=== PATIENT | female | born 1935 | race Caucasian/White ===

== ENCOUNTER → 2016-11-23 | Outpatient (CLI) | payer OTHER ==
[~2016-11-23] MED LIST: ALL100 PO; NAPR1TAB9 PO; OMEG10007 PO; PRLSR20 PO
--- NOTE | 2016-11-24 08:01 | MAMMOGRAPHY REPORT ---
BILATERAL DIGITAL SCREENING MAMMOGRAM WITH CAD: 11/23/2016 CLINICAL HISTORY: Routine screening. Patient has no complaints. TECHNIQUE: Bilateral CC and MLO views were obtained. Current study was also evaluated with a Comput er Aided Detection (CAD) system. COMPARISON: Comparison is made to exams dated: 02/20/2015 mammogram, 02/16/2013 mammogram, 02/19/2014 ma mmogram, 02/11/2012 mammogram, 02/05/2011 mammogram - [facility], and 01/30/2009. BREAST COMPOSITION: There are scattered areas of fibroglandular density in both breasts. FINDINGS: There are rodlike secretory calcifications and a few benign rim calcifications in the [address]s. No suspicious mass, architectural distortion or cluster of suspicious microcalcifications is s een. IMPRESSION: ACR BI-RADS CATEGORY 1: NEGATIVE There is no mammographic evidence of malignancy. A 1 year screening mammogram is recommended. The p atient will receive written notification of the results. Approximately 10% of breast cancers are not detected with mammography. A negative mammographic repor t should not delay biopsy if a clinically suggestive mass is present. Mary Lake M.D. ay/:11/23/2016 16:10:05 Manager Strategic Development: Leti MONSIVAIS([place]), [facility] letter sent: Normal 1/2 BI-RADS Code: ACR BI-RADS Category 1: Negative
== END | disposition home or self-care (01) ==
LOC: C.MAMM 08:06
PROVIDERS: ATTEND Family Medicine
DX: Z12.31 Encounter for screening mammogram for malignant neoplasm of breast (principal)

== ENCOUNTER 2023-01-13 11:17 | Inpatient (IN) ==
--- NOTE | 2023-01-13 12:40 | Emergency Department Note ---
Impression & Plan Acute exacerbation of chronic obstructive pulmonary disease ADMIT ED Provider Note HPI: The patient is an 87-year-old female with history of dementia, presents emergency department with a chief complaint of shortness of breath. Patient's daughter is at the bedside and serves with further history. Patient's daughter states that the patient was found in her assisted living [address] 2 days ago on the ground. She had been in an altered state but was refusing to go to the hospital therefore they cleaned her up and kept her at her apartment. She had a follow- up appointment today with her PCP where she was noted to be complaining of shortness of breath, PCP recommended transfer to the ED for further assessment. On arrival here to the ED the patient was noted to be hypoxic on room air at about 83%, mild increased work of breathing and coarse bilateral breath sounds. She was placed on nasal cannula oxygen with good improvement. Patient is a limited historian with her history of dementia, she does deny any chest pain on arrival but states she does feel short of breath. Patient is afebrile on arrival. ROS: - Per HPI *Outpatient medications and allergy history reviewed. *Pertinent external medical records reviewed. PE: General: Alert HEENT: Normocephalic, trachea midline Eyes: Extraocular eye movement is intact, no scleral erythema Pulmonary: Coarse bilateral breath sounds with diminished air movement bilaterally, no wheezing Cardio: Regular rate and rhythm GI: Abdomen is soft to palpation : No suprapubic tenderness MSK: No evidence of trauma or malformation of the extremities, no edema Skin: No evidence of rash Neuro: Alert, no focal deficits Psychiatric: Cooperative maltster: (As interpreted by myself): - An order was placed for continuous cardiac monitoring - Patient was noted to be in sinus rhythm with a rate of 105 EKG: (As interpreted by myself): Rate: 170 Rhythm: Sinus tachycardia Intervals: QRS 122 ms, otherwise within normal limits ST changes: No ST elevation Time: 1156 Interventions provided in ED: -DuoNeb breathing treatment, IV Solu-Medrol Differential Diagnosis: COPD exacerbation with hypoxia, CHF exacerbation with hypoxia, acute bacterial pneumonia, viral upper respiratory infection, ACS, PE, amongst other potential pathologies. Medical Decision Making: Patient presented to the emergency department with shortness of breath. IV was established, lab work obtained, patient was placed on supplemental oxygen and maintained on ground equipment mechanic. Lab work shows evidence of a leukocytosis of 15,000, hemoglobin is stable at 16.5, platelet count within normal limits, there is a neutrophilic shift on differential. Venous blood gas shows mild acidosis with PCO2 of 60 and pH of 7.35, patient was given DuoNeb breathing treatment and IV Solu-Medrol, CMP does not show any critical electrolyte abnormalities, troponin mildly elevated at 18.6, patient denies any chest pain. X-ray imaging shows bibasilar opacities favoring atelectasis over infection, however given the patient's leukocytosis with left shift she was covered with cefepime and azithromycin over concern for possible pneumonia she also has a cough. Blood cultures were drawn. BNP is within normal limits, low suspicion for fluid overload/CHF as a source of her hypoxia at this time. Viral panel testing was sent and is pending at the time of admission. Case was discussed with the on-call hospitalist service for [facility], patient was placed for admission under the service of Dr. Nicholson, patient and her family members at the bedside are in agreement to the above plan the patient was placed for admission in improved condition on nasal cannula oxygen Consultants: Hospitalist service, Dr. Nicholson Disposition discussion held by myself with: Patient, daughter at the bedside, son at the bedside * CRITICAL CARE TIME: (40) minutes -Stabilization of hypoxia with oxygen saturations less than 90% on room air requiring supplemental oxygen for correction, time spent at the bedside, interpretation of diagnostic studies, discussion with other physicians and arrangement of admission Diagnosis: 1. Hypoxia, acute 2. COPD exacerbation with hypercarbia and hypoxia 3. Bilateral pneumonia 4. Leukocytosis 5. Elevated high-sensitivity troponin level Disposition: Admission Mitch Martinez DO Emergency Medicine Past Med/Surg History Social History Smoking Status: Never smoker Preferred Language: Serbian Feels Safe at Home: Yes Allergies Allergies Allergy/AdvReac Type Severity Reaction Status Date / Time No Known Allergies Allergy Unknown Verified 08/23/05 00:34 Home Meds Home Medications Medication Instructions Recorded Confirmed Allopurinol (Zyloprim *) 100 mg PO DAILY ##0 11/12/08 Fish Oil (Monterey-3) 1 cap PO DAILY ##0 11/12/08 Naproxen (Aleve) 220 mg PO DAILY ##0 11/12/08 OMEPRAZOLE (PRILOSEC) 20 mg PO DAILY ##0 11/12/08 Results & Data (ED) Vital Signs Vital Signs - 24 hr 01/13/23 11:21 01/13/23 12:42 01/13/23 12:46 Temperature 36.8 C Temperature Source Temporal Artery Scan Pulse Rate 119 H 108 H 112 H Respiratory Rate 18 22 Respiratory Depth Normal Blood Pressure 124/79 Blood Pressure Mean 94 Blood Pressure Position Sitting Pulse Oximetry 90 97 Oxygen Delivery Method Nasal Cannula Nasal Cannula Oxygen Flow Rate 2 3 Sepsis Recent Fever Within 48 Hours No Sepsis New/Unexplained Change in Mental Status No Sepsis Action Taken by Nursing No Action Required Laboratory Data 01/13/23 12:10 01/13/23 12:10 Lab Results 01/13/23 01/13/23 01/13/23 Range/Units 12:10 12:10 12:10 WBC 15.01 H (4.8-10.8) K/ul RBC 5.29 (4.20-5.40) M/uL Hgb 16.5 H (12.0-16.0) g/dl Hct 49.7 H (37.0-47.0) % MCV 94.0 (80.0-100.0) fL MCH 31.2 (25.0-34.0) pg MCHC 33.2 (32.0-36.0) g/dL RDW Std Deviation 45.8 (36.4-46.3) fL RDW Coeff of Stew 13.4 (11.5-14.5) % Plt Count 208 (130-400) K/uL MPV 11.6 (9.4-12.4) fL Immature Gran % (Auto) 0.5 % Neut % (Auto) 74.0 % Lymph % (Auto) 17.7 % [place] % (Auto) 7.3 % Eos % (Auto) 0.2 % Baso % (Auto) 0.3 % Neut # (Auto) 11.10 H (1.40-6.50) K/uL Lymph # (Auto) 2.66 (1.2-3.4) K/uL [place] # (Auto) 1.10 H (0.11-0.59) K/uL Eos # (Auto) 0.03 (0-0.50) K/uL Baso # (Auto) 0.05 (0-0.2) K/uL Immature Gran # (Auto) 0.07 (0.01-0.20) K/uL PT (9.0-12.0) Seconds INR (0.9-1.1) VBG pH (7.36-7.41) VBG pCO2 (38-50) mmHg VBG pO2 mmHg VBG HCO3 mmol/L VBG O2 Saturation % VBG Base Excess mEq/L Sodium 136 (136-145) mmol/L Potassium 4.3 (3.5-5.1) mmol/L Chloride 99 (98-107) mmol/L Carbon Dioxide 30 (21-32) mmol/L Anion Gap 7 (3-11) BUN 32 H (6-23) mg/dl Creatinine 0.77 (0.6-1.2) mg/dl Est Cr Clr Drug Dosing Not Reportable Est GFR ( Amer) 79.9 ml/min Est GFR (Non-Af Amer) 68.9 ml/min BUN/Creatinine Ratio 41.6 H (10-20) Glucose 88 (70-99(Fasting)) mg/dl Lactate (0.4-2.0) mmol/L Calcium 11.1 H (8.6-10.3) mg/dl Magnesium 1.8 (1.7-2.4) mg/dl Total Bilirubin 1.7 H (0.2-1.0) mg/dl Direct Bilirubin 0.4 H (0-0.2) mg/dl AST 27 (13-39) U/L ALT 19 (7-52) U/L Alkaline Phosphatase 58 (34-104) U/L Total Creatine Kinase 167 (26-192) U/L Troponin I High Sens 18.6 H (0-14) pg/ml B-Natriuretic Peptide (0-100) pg/ml Total Protein 7.4 (6.0-8.3) gm/dl Albumin 4.0 (3.4-5.0) gm/dl Procalcitonin 0.15 (0-0.5) ng/ml 01/13/23 01/13/23 01/13/23 Range/Units 12:10 12:52 12:57 WBC (4.8-10.8) K/ul RBC (4.20-5.40) M/uL Hgb (12.0-16.0) g/dl Hct (37.0-47.0) % MCV (80.0-100.0) fL MCH (25.0-34.0) pg MCHC (32.0-36.0) g/dL RDW Std Deviation (36.4-46.3) fL RDW Coeff of Stew (11.5-14.5) % Plt Count (130-400) K/uL MPV (9.4-12.4) fL Immature Gran % (Auto) % Neut % (Auto) % Lymph % (Auto) % [place] % (Auto) % Eos % (Auto) % Baso % (Auto) % Neut # (Auto) (1.40-6.50) K/uL Lymph # (Auto) (1.2-3.4) K/uL [place] # (Auto) (0.11-0.59) K/uL Eos # (Auto) (0-0.50) K/uL Baso # (Auto) (0-0.2) K/uL Immature Gran # (Auto) (0.01-0.20) K/uL PT 11.5 (9.0-12.0) Seconds INR 1.1 (0.9-1.1) VBG pH 7.35 L (7.36-7.41) VBG pCO2 60 H (38-50) mmHg VBG pO2 35 mmHg VBG HCO3 33 mmol/L VBG O2 Saturation 62.7 % VBG Base Excess 5.2 mEq/L Sodium (136-145) mmol/L Potassium (3.5-5.1) mmol/L Chloride (98-107) mmol/L Carbon Dioxide (21-32) mmol/L Anion Gap (3-11) BUN (6-23) mg/dl Creatinine (0.6-1.2) mg/dl Est Cr Clr Drug Dosing Est GFR ( Amer) ml/min Est GFR (Non-Af Amer) ml/min BUN/Creatinine Ratio (10-20) Glucose (70-99(Fasting)) mg/dl Lactate 1.4 (0.4-2.0) mmol/L Calcium (8.6-10.3) mg/dl Magnesium (1.7-2.4) mg/dl Total Bilirubin (0.2-1.0) mg/dl Direct Bilirubin (0-0.2) mg/dl AST (13-39) U/L ALT (7-52) U/L Alkaline Phosphatase (34-104) U/L Total Creatine Kinase (26-192) U/L Troponin I High Sens (0-14) pg/ml B-Natriuretic Peptide (0-100) pg/ml Total Protein (6.0-8.3) gm/dl Albumin (3.4-5.0) gm/dl Procalcitonin (0-0.5) ng/ml 01/13/23 Range/Units 13:01 WBC (4.8-10.8) K/ul RBC (4.20-5.40) M/uL Hgb (12.0-16.0) g/dl Hct (37.0-47.0) % MCV (80.0-100.0) fL MCH (25.0-34.0) pg MCHC (32.0-36.0) g/dL RDW Std Deviation (36.4-46.3) fL RDW Coeff of Stew (11.5-14.5) % Plt Count (130-400) K/uL MPV (9.4-12.4) fL Immature Gran % (Auto) % Neut % (Auto) % Lymph % (Auto) % [place] % (Auto) % Eos % (Auto) % Baso % (Auto) % Neut # (Auto) (1.40-6.50) K/uL Lymph # (Auto) (1.2-3.4) K/uL [place] # (Auto) (0.11-0.59) K/uL Eos # (Auto) (0-0.50) K/uL Baso # (Auto) (0-0.2) K/uL Immature Gran # (Auto) (0.01-0.20) K/uL PT (9.0-12.0) Seconds INR (0.9-1.1) VBG pH (7.36-7.41) VBG pCO2 (38-50) mmHg VBG pO2 mmHg VBG HCO3 mmol/L VBG O2 Saturation % VBG Base Excess mEq/L Sodium (136-145) mmol/L Potassium (3.5-5.1) mmol/L Chloride (98-107) mmol/L Carbon Dioxide (21-32) mmol/L Anion Gap (3-11) BUN (6-23) mg/dl Creatinine (0.6-1.2) mg/dl Est Cr Clr Drug Dosing Est GFR ( Amer) ml/min Est GFR (Non-Af Amer) ml/min BUN/Creatinine Ratio (10-20) Glucose (70-99(Fasting)) mg/dl Lactate (0.4-2.0) mmol/L Calcium (8.6-10.3) mg/dl Magnesium (1.7-2.4) mg/dl Total Bilirubin (0.2-1.0) mg/dl Direct Bilirubin (0-0.2) mg/dl AST (13-39) U/L ALT (7-52) U/L Alkaline Phosphatase (34-104) U/L Total Creatine Kinase (26-192) U/L Troponin I High Sens (0-14) pg/ml B-Natriuretic Peptide 61 (0-100) pg/ml Total Protein (6.0-8.3) gm/dl Albumin (3.4-5.0) gm/dl Procalcitonin (0-0.5) ng/ml Administered Medications Discontinued Medications Albuterol (Albut/Ipratrop 3mg/0.5mg Neb 3 Ml Vial) 3 ml NEB NOW STA; Protocol Stop: 01/13/23 13:12 Last Admin: 01/13/23 13:26 Dose: 3 ml Documented By: ALIRIO Cefepime HCl (Maxipime) 2,000 mg in 20 mls @ 5 mls/min IV NOW STA; Protocol Stop: 01/13/23 14:23 Last Admin: 01/13/23 14:32 Dose: 5 mls/min Documented By: DOUGLAS Methylprednisolone (Methylprednisolone 125 Mg/2 Ml Vial) 125 mg IV NOW STA Stop: 01/13/23 13:12 Last Admin: 01/13/23 13:26 Dose: 125 mg Documented By: ALIRIO Imaging Data Radiologist's Impression: Chest X-Ray 01/13/23 12:37 XR chest 1V portable CLINICAL HISTORY: Sepsis. COMPARISON STUDY: No previous studies for comparison. FINDINGS: Lung volumes are normal. There is no pneumothorax. Mild bibasilar opacities favor atelectasis. There is cardiomegaly. Subtle interstitial thickening without overt pulmonary edema. Possible trace bilateral pleural effusions. IMPRESSION: 1. Cardiomegaly without overt pulmonary edema. 2. Mild bibasilar opacities which favor atelectasis. An infectious process is considered less likely. 3. Possible trace bilateral pleural effusions. ACT 112: Negative or not required by law. Electronically signed by: Cipriano Sandoval M.D. 01/13/2023 1:04 PM Discharge Plan Visit Data Chief Complaint: Shortness of Breath/Dyspnea Stated Complaint: DYSPNEA,DOC REF ED Provider: Mitch Martinez Discharge Problem: Acute exacerbation of chronic obstructive pulmonary disease Forms Stand Alone Forms: [facility] [employer] Prescriptions Prescriptions: No Action Allopurinol (Zyloprim *) 100 MG tablet 100 mg PO DAILY Qty: 0 Fish Oil (Monterey-3) 1 EA capsule 1 cap PO DAILY Qty: 0 Naproxen (Aleve) 220 MG tablet 220 mg PO DAILY Qty: 0 Patient Comments: 2 TABS OMEPRAZOLE (PRILOSEC) 20 MG CONTR REL CAP 20 mg PO DAILY Qty: 0 Referrals Referrals: Fidelia Hurd, [Outside Practitioners] -
--- NOTE | 2023-01-13 13:05 | XRay Report ---
XR chest 1V portable CLINICAL HISTORY: Sepsis. COMPARISON STUDY: No previous studies for comparison. FINDINGS: Lung volumes are normal. There is no pneumothorax. Mild bibasilar opacities favor atelectas is. There is cardiomegaly. Subtle interstitial thickening without overt pulmonary edema. Possible tra ce bilateral pleural effusions. IMPRESSION: 1. Cardiomegaly without overt pulmonary edema. 2. Mild bibasilar opacities which favor atelectasis. An infectious process is considered less likely. 3. Possible trace bilateral pleural effusions. ACT 112: Negative or not required by law. Electronically signed by: Cipriano Sandoval M.D. 01/13/2023 1:04 PM
[2023-01-13 13:06] LABS: Base Excess VBG 5.2 mEq/L; HCO3 VBG 33 mmol/L; Oxygen Saturation VBG 62.7 %; PCO2 VBG 60 mmHg (38-50); PO2 VBG 35 mmHg; pH VBG 7.35 (7.36-7.41)
[2023-01-13] MEDS ORDERED: ALBUT/IPRATROP 3MG/0.5MG NEB 3 ML VIAL NEB STA (13:11)
[2023-01-13] MEDS ORDERED: methylPREDNISolone 125 MG/2 ML VIAL IV STA (13:11)
[2023-01-13 13:34] LABS: Basophils # (auto) 0.05 K/uL (0-0.2); Basophils % (auto) 0.3 %; Eosinophils # (auto) 0.03 K/uL (0-0.50); Eosinophils % (auto) 0.2 %; Hematocrit (blood only) 49.7 % (37.0-47.0); Hemoglobin 16.5 g/dl (12.0-16.0); Immature Granulocytes # (auto) 0.07 K/uL (0.01-0.20); Immature Granulocytes % (auto) 0.5 %; Lymphocytes # (auto) 2.66 K/uL (1.2-3.4); Lymphocytes % (auto) 17.7 %; Mean Corpuscular Hemoglobin 31.2 pg (25.0-34.0); Mean Corpuscular Hgb Conc 33.2 g/dL (32.0-36.0); Mean Platelet Volume 11.6 fL (9.4-12.4); Monocytes % (auto) 7.3 %; Platelet Count 208 K/uL (130-400); RDW Coefficient of Variation 13.4 % (11.5-14.5); RDW Standard Deviation 45.8 fL (36.4-46.3); Red Blood Count 5.29 M/uL (4.20-5.40); White Blood Count 15.01 K/ul (4.8-10.8)
[2023-01-13 13:52] LABS: Alanine Aminotransferase 19 U/L (7-52); Alkaline Phosphatase 58 U/L (34-104); Anion Gap 7 (3-11); Aspartate Aminotransferase 27 U/L (13-39); BUN Creatinine Ratio 41.6 (10-20); Bilirubin Direct 0.4 mg/dl (0-0.2); Bilirubin,Total 1.7 mg/dl (0.2-1.0); Blood Urea Nitrogen 32 mg/dl (6-23); Calcium 11.1 mg/dl (8.6-10.3); Carbon Dioxide 30 mmol/L (21-32); Chloride 99 mmol/L (98-107); Creatine Kinase 167 U/L (26-192); Est GFR (African American) 79.9 ml/min; Est GFR (Non-African American) 68.9 ml/min; Glucose 88 mg/dl (70-99(Fasting)); Magnesium 1.8 mg/dl (1.7-2.4); Potassium 4.3 mmol/L (3.5-5.1); Sodium 136 mmol/L (136-145); Total Protein 7.4 gm/dl (6.0-8.3)
[2023-01-13 13:58] LABS: Troponin I High Sensitivity 18.6 pg/ml (0-14)
[2023-01-13 13:59] LABS: INR 1.1 (0.9-1.1); Prothrombin Time 11.5 Seconds (9.0-12.0)
[2023-01-13] MEDS ORDERED: CEFEPIME 2,000 MG/20 ML VIAL IV STA (14:20)
[2023-01-13] MEDS ORDERED: AZITHROMYCIN 500 MG in DEXTROSE 5% 250 ML IV ONE (14:20)
--- NOTE | 2023-01-13 15:04 | History & Physical Report ---
Date of Service January 13, 2023 Assessment & Plan (1) Acute and chronic respiratory failure with hypoxia: (2) Pulmonary embolism: (3) COVID-19: Plan: Possible pneumonia Patient is 87-year-old female with PMH Alzheimer dementia, restrictive lung disease, asthma, exertional hypoxia, gout presented to ER for noted hypoxia of 85% in PCP clinic today. Chronic productive cough and chronic exertional SOB without reported increase. Denies fever/chills. No known COVID-19 exposure. Unclear In ER afebrile, P: 119, BP: 124/79, R: 22, 90% on 2L NC WBC: 15, lactate: 1.4, procalcitonin: 0.15. +COVID 19, negative influenza, RSV PCR. VBG: pH: 7.35, pCO2: 60, pO2: 60, HCO3: 33 CXR: Cardiomegaly without overt pulmonary edema. Mild bibasilar opacities which favor atelectasis. Possible trace bilateral pleural effusions. In ER given albuterol neb, Zithromax, cefepime, 125 mg Solu-Medrol IV CTA chest: 1. Several segmental and subsegmental pulmonary emboli within the right lung. 2. Small right pleural effusion. Adjacent airspace opacity favors atelectasis however an underlying pulmonary infarct would be difficult to exclude given pulmonary emboli. An infectious process is also within the differential but considered less likely. 3. Moderate cardiomegaly and coronary artery calcification and mild dilatation of the ascending aorta. Dilatation of the central pulmonary arteries which suggests portal hypertension. 4. Right lower lobe bronchial wall thickening and secretions. Airborne isolation Supplemental oxygen as needed Start Heparin IV. Monitor for any signs of bleeding Albuterol neb as needed Dexamethasone 6mg IV daily Incentive spirometry Cefepime, doxycycline Echo CBC, BMP in a.m. (4) Restrictive airway disease: Plan: History asthma, restrictive airway disease, exertional hypoxia Awaiting outpatient oxygen for use with ambulation Follows with [facility] pulmonology Continue home inhaler Albuterol nebs prn Further treatment as above (5) AMS (altered mental status): (6) Alzheimer disease: Plan: Likely metabolic encephalopathy on chronic dementia CT head: No acute intracranial abnormality. Acute maxillary sinusitis. UA pending Monitor for delirium (7) Sinus tachycardia: Plan: Sinus tachycardia in ER Likely secondary to underlying illness with PE, COVID-19 Monitor on tele (8) Elevated troponin: (9) LBBB (left bundle branch block): Plan: Initial high-sensitivity troponin: 18.6 EKG: Sinus tachycardia, LBBB, PVCs. Last EKG 2011 without LBBB Denies chest pain Possible demand ischemia secondary to hypoxia, PE, COVID-19 Will trend troponin Echo If troponins uptrending consider cardiology consult (10) PVC (premature ventricular contraction): Plan: PVCs noted on EKG Start metoprolol tartrate 12.5mg BID (11) Hypercalcemia: Plan: Ca: 11 Vitamin D, PTH, parathyroid related protein pending (12) Gout: Plan: Continue allopurinol DVT Prophylaxis Heparin IV for PE present upon arrival Full Code as per discussion with pt, and pt's family. Wants initial attempt but would not want prolonged life support if poor prognosis Follows with Dr Kaur for routine care Pt was seen and care coordinated with Dr Nicholson. See addendum I spent a total of 82 minutes reviewing notes, outpatient records, labs, medication, coordinating, documenting and providing care for this patient excluding time spent in the performance of separately billed services. History of Present Illness Chief Complaint: SOB, noted hypoxia outpatient Primary Care Provider: Mitch Kaur MD Patient is 87-year-old female with PMH Alzheimer dementia, restrictive lung disease, asthma, gout presented to ER for noted hypoxia in PCP clinic today. History obtained from patient as well as patient's daughter and patient's son. Family reports 2 days ago visited her and she was found her sitting on the floor, apartment was soiled with stool. She was naked and seemed disoriented. Son states stool looked dark. Patient refused to go to ER at that time. Seen at PCPs office today for follow up of altered mental status 2 days ago and she was found to have pulse ox of 85%. Chronic cough sometimes productive, unknown color. Denies any increased cough. Patient with chronic shortness of breath with exertion. Outpatient pulmonology trying to get patient oxygen to use with exertion for exertional hypoxia. Patient denies any increased SOB. Denies any increased cough. She feels her cough has been worse in the past. Denies chest pain, fever/chills, diaphoresis, N/V/D/C, GARCÍA, dizziness, syncope, vision changes, neck pain, palpitations, hemoptysis, sore throat, rhinorrhea, abdominal pain, weakness, extremity weakness, extremity edema, rashes, urinary symptoms. Outpatient records reviewed: 04/27/2022: Echo:EF>70%, borderline to mild aortic stenosis, moderate mitral annular calcification, mild mitral regurgitation Allergies Allergy/AdvReac Type Severity Reaction Status Date / Time rosuvastatin Allergy Unknown Unknown Unverified 01/13/23 16:31 Home Medications Medication Instructions Recorded Confirmed Type allopurinol 100 mg tablet 100 mg PO DAILY 01/13/23 01/13/23 History fluticasone 250 mcg-salmeterol 50 1 inh inhalation BID 01/13/23 01/13/23 History mcg/dose blistr powdr for inhalation ([facility]) Past Med/Surg History Medical History Alzheimer disease Asthma Gout Restrictive airway disease Surgical History History of hysterectomy Family History Other Cancer Stroke Social History Smoking Status: Former smoker Hx Alcohol Use: No Hx Substance Use: No Preferred Language: Stateless Feels Safe at Home: Yes Review of Systems Review of Systems: All systems reviewed & are unremarkable except as noted in HPI & below Physical Exam Physical Exam: General: no acute distress on current oxygen, overweight Head: normocephalic, atraumatic Eyes: conjunctiva non-injected, anicteric ENT: normal inspection external ears, nose, mucous membranes moist Neck: supple, trachea midline Lungs: no respiratory distress on current 4L oxygen via NC, scant wheezing CV: RRR, + murmur, trace-1+ pretibial edema Abd: normal BS, soft, non-tender Ext: no cyanosis, no calf tenderness Neuro: Alert, oriented to person, says in [facility], no focal deficits noted, normal affect Skin: warm, dry Results & Data Results & Data Vital Signs (Past 12 Hours) Vital Signs Temp Pulse Resp BP Pulse Ox O2 Del Method O2 Flow Rate 01/13/23 14:33 90 20 91 01/13/23 14:33 131/87 01/13/23 14:00 109 H 18 95 01/13/23 13:00 112 H 16 96 01/13/23 12:46 112 H 01/13/23 12:42 108 H 22 97 Nasal Cannula 3 01/13/23 11:21 36.8 C 119 H 18 124/79 90 Nasal Cannula 2 Laboratory Results Short CBC 01/13/23 Range/Units 12:10 WBC 15.01 H (4.8-10.8) K/ul Hgb 16.5 H (12.0-16.0) g/dl Hct 49.7 H (37.0-47.0) % Plt Count 208 (130-400) K/uL BMP 01/13/23 12:10 Sodium 136 Potassium 4.3 Chloride 99 Carbon Dioxide 30 BUN 32 H Creatinine 0.77 Glucose 88 Calcium 11.1 H Cardiac Enzymes 01/13/23 Range/Units 12:10 Total Creatine Kinase 167 (26-192) U/L Liver Function 01/13/23 Range/Units 12:10 Total Bilirubin 1.7 H (0.2-1.0) mg/dl Direct Bilirubin 0.4 H (0-0.2) mg/dl AST 27 (13-39) U/L ALT 19 (7-52) U/L Alkaline Phosphatase 58 (34-104) U/L Albumin 4.0 (3.4-5.0) gm/dl Diagnostic Findings Chest X-Ray 01/13/23 12:37 XR chest 1V portable CLINICAL HISTORY: Sepsis. COMPARISON STUDY: No previous studies for comparison. FINDINGS: Lung volumes are normal. There is no pneumothorax. Mild bibasilar opacities favor atelectasis. There is cardiomegaly. Subtle interstitial thickening without overt pulmonary edema. Possible trace bilateral pleural effusions. IMPRESSION: 1. Cardiomegaly without overt pulmonary edema. 2. Mild bibasilar opacities which favor atelectasis. An infectious process is considered less likely. 3. Possible trace bilateral pleural effusions. ACT 112: Negative or not required by law. Electronically signed by: Cipriano Sandoval M.D. 01/13/2023 1:04 PM Chest CTA 01/13/23 15:43 CT ANGIOGRAPHY OF THE CHEST, PULMONARY EMBOLUS PROTOCOL CLINICAL HISTORY: Shortness of breath. Evaluate for pulmonary embolus. COMPARISON STUDY: Chest radiograph performed earlier today. TECHNIQUE: Following IV administration of 116 mL of Optiray, helical axial images of the chest were obtained utilizing the pulmonary embolus protocol. Maximal intensity projections and sagittal and coronal reformats were viewed on an independent 3D workstation. IV contrast was administered without complication. Automated exposure control was utilized for the study. A dose lowering technique was utilized adhering to the principles of ALARA. FINDINGS: There are several segmental and subsegmental pulmonary emboli within the right lung. No central pulmonary emboli are present. Mild dilatation of the central pulmonary arteries. Moderate cardiomegaly and mild dilatation of the ascending aorta, measuring up to 4.2 cm, is noted. There is no pericardial effusion. A small right pleural effusion is noted. Segmental right lower lobe airspace opacity is present. Secretions and bronchial wall thickening within the right lower lobe bronchi are noted. There is mild left lower lobe airspace opacity. There is no pneumothorax. Lungs are suboptimally assessed due to respiratory motion. No thoracic lymphadenopathy. No acute fractures within the bony thorax. IMPRESSION: 1. Several segmental and subsegmental pulmonary emboli within the right lung. 2. Small right pleural effusion. Adjacent airspace opacity favors atelectasis however an underlying pulmonary infarct would be difficult to exclude given pulmonary emboli. An infectious process is also within the differential but considered less likely. 3. Moderate cardiomegaly and coronary artery calcification and mild dilatation of the ascending aorta. Dilatation of the central pulmonary arteries which suggests portal hypertension. 4. Right lower lobe bronchial wall thickening and secretions. ACT 112: Negative or not required by law. Electronically signed by: Cipriano Sandoval M.D. 01/13/2023 5:[address] 01/13/23 15:[address] DOSE: 1281.23 mGy.cm HISTORY: Altered mental status. TECHNIQUE: Multiaxial CT images of the head were performed without the use of intravenous contrast. Automated exposure control was utilized for this study. A dose lowering technique was utilized adhering to the principles of ALARA. Comparison: None. Findings: Mucosal thickening and fluid levels within the maxillary sinuses resulting in partial opacification. Partial opacification of the left posterior ethmoid air cells are also noted. The calvarium and skull base are intact. There is no mass, hematoma, midline shift, acute infarct. White matter hypodensity is nonspecific but suggestive of moderate microvascular ischemic change. The ventricles and sulci demonstrate mild age-related involutional changes. Trace left mastoid effusion. The right mastoid air cells are clear. Impression: No acute intracranial abnormality. Acute maxillary sinusitis. ACT 112: Negative or not required by law. Electronically signed by: Syed Helm M.D. 01/13/2023 5:17 PM ECG Rate (beats per minute): 117 Rhythm: sinus rhythm Findings: + LBBB and + PVC Supervising Physician Co-Signing Physician Notes Patient is an 87-year-old female with history of dementia, restrictive lung disease, asthma, gout and other medical problems presents to ED on recommendations by her PCP for evaluation of shortness of breath which has been gradually worsening associated with cough and was noted to be hypoxic in PCP clinic today. Patient is a poor historian secondary to hearing impairment. History is also obtained from patient's family at bedside. Patient denies any chest pain, dyspnea at rest but admits to have dyspnea on exertion. Please review HPI for complete details of presentation. I personally reviewed blood work, imaging studies and EKG. On exam patient is obese, no apparent distress, normocephalic atraumatic, EOMI, decreased breath sounds, scant wheezes, S1-S2,+ murmur, trace edema, abdomen soft, nontender, normal bowel sounds, alert, awake, oriented x2,+ hearing impairment. Patient was positive for COVID, negative for influenza, RSV. Blood work suggestive of hypercarbia. CT head suggestive of acute maxillary sinusitis. CTA showed several segmental and subsegmental pulmonary emboli within the right lung, small right pleural effusion, findings suggestive of atelectasis, moderate cardiomegaly, mild dilatation of ascending aorta and findings suggestive of portal hypertension, right lower lobe bronchial wall thickening and secretions. Blood, urine cultures obtained. EKG showed sinus tachycardia, PVCs, left axis deviation, left bundle branch block, QTc 460. Patient is admitted for management of acute on chronic respiratory failure with hypoxia and hypercarbia secondary to pulmonary embolism, COVID-19 infection, complicated bronchitis. Agree with IV heparin, nebs, Decadron, pulmonary hygiene and empiric antibiotics. We will obtain an echo, trend troponins. Also noted hypercalcemia--work-up ordered. Avoid vitamin D, calcium supplements. Continue IV fluids with caution given comorbidities. Monitor calcium levels. Consider nephrology evaluation if no improvement. Left bundle branch block new but currently patient denies any chest pain, chest heaviness or dyspnea at rest. Troponins trending down. Already on IV heparin for PE. Given symptomatic PVCs, will start low-dose metoprolol. Further management of hypercalcemia based on work-up. I personally reviewed the record. Patient is interviewed and examined at bedside. Patient's care is coordinated with Luisa Patel. Please refer to the documentation above for details of patient's presentation and for discussion of other issues.
[2023-01-13 15:19] LABS: Influenza A virus by PCR Negative (Neg); Influenza B virus by PCR Negative (Neg); RSV by PCR Negative (Neg)
[2023-01-13 15:45] LABS: SARS CoV2 RNA(COVID-19) Ceph POSITIVE (Negative)
--- NOTE | 2023-01-13 16:54 | Electrocardiogram Report ---
Test Reason : Blood Pressure : / mmHG Vent. Rate : 117 BPM Atrial Rate : 117 BPM P-R Int : 168 ms QRS Dur : 122 ms QT Int : 330 ms P-R-T Axes : 067 -63 078 degrees QTc Int : 460 ms Sinus tachycardia with occasional Premature ventricular complexes and Fusion complexes Left atrial enlargement Left axis deviation Left bundle branch block Abnormal ECG When compared with ECG of 23-AUG-2005 07:46, Fusion complexes are now Present Premature ventricular complexes are now Present Vent. rate has increased BY 40 BPM Left bundle branch block is now Present Confirmed by Terry Mcnair ([id number]) on 01/13/2023 4:54:32 PM Referred By: Mitch Kaur Confirmed By:Terry Mcnair
[2023-01-13] MEDS ORDERED: OPTIRAY 320 500ml IV ONE (16:55)
--- NOTE | 2023-01-13 17:19 | CT Scan Report ---
HEAD CT NONCONTRAST CT DOSE: 1281.23 mGy.cm HISTORY: Altered mental status. TECHNIQUE: Multiaxial CT images of the head were performed without the use of intravenous contrast. A utomated exposure control was utilized for this study. A dose lowering technique was utilized adheri ng to the principles of ALARA. Comparison: None. Findings: Mucosal thickening and fluid levels within the maxillary sinuses resulting in partial opaci fication. Partial opacification of the left posterior ethmoid air cells are also noted. The calvarium and skull base are intact. There is no mass, hematoma, midline shift, acute infarct. White matter hy podensity is nonspecific but suggestive of moderate microvascular ischemic change. The ventricles and sulci demonstrate mild age-related involutional changes. Trace left mastoid effusion. The right mast oid air cells are clear. Impression: No acute intracranial abnormality. Acute maxillary sinusitis. ACT 112: Negative or not required by law. Electronically signed by: Syed Helm M.D. 01/13/2023 5:17 PM
[2023-01-13 17:21] LABS: Appearance Urine Clear (Clear); Bacteria Urine Automated Negative (Negative); Bilirubin Urine Negative (Negative); Blood Urine Negative (Negative); Color Urine Dark Yellow; Epithelial Cell Urine Auto >30 /lpf (0-5); Glucose Urine UA Negative (Negative); Ketones Urine 2+ (Negative); Leukocyte Esterase Urine 1+ (Negative); Nitrite Urine Negative (Negative); Protein Urine Trace (Negative); RBC Urine Automated 0-4 /hpf (0-4); Specific Gravity Urine 1.027 (1.000-1.030); Urobilinogen Urine Negative (Negative)
--- NOTE | 2023-01-13 17:28 | CT Scan Report ---
CT ANGIOGRAPHY OF THE CHEST, PULMONARY EMBOLUS PROTOCOL CLINICAL HISTORY: Shortness of breath. Evaluate for pulmonary embolus. COMPARISON STUDY: Chest radiograph performed earlier today. TECHNIQUE: Following IV administration of 116 mL of Optiray, helical axial images of the chest were o btained utilizing the pulmonary embolus protocol. Maximal intensity projections and sagittal and cor onal reformats were viewed on an independent 3D workstation. IV contrast was administered without co mplication. Automated exposure control was utilized for the study. A dose lowering technique was ut ilized adhering to the principles of ALARA. FINDINGS: There are several segmental and subsegmental pulmonary emboli within the right lung. No ce ntral pulmonary emboli are present. Mild dilatation of the central pulmonary arteries. Moderate cardi omegaly and mild dilatation of the ascending aorta, measuring up to 4.2 cm, is noted. There is no per icardial effusion. A small right pleural effusion is noted. Segmental right lower lobe airspace opaci ty is present. Secretions and bronchial wall thickening within the right lower lobe bronchi are noted . There is mild left lower lobe airspace opacity. There is no pneumothorax. Lungs are suboptimally as sessed due to respiratory motion. No thoracic lymphadenopathy. No acute fractures within the bony tho rax. IMPRESSION: 1. Several segmental and subsegmental pulmonary emboli within the right lung. 2. Small right pleural effusion. Adjacent airspace opacity favors atelectasis however an underlying p ulmonary infarct would be difficult to exclude given pulmonary emboli. An infectious process is also within the differential but considered less likely. 3. Moderate cardiomegaly and coronary artery calcification and mild dilatation of the ascending aorta . Dilatation of the central pulmonary arteries which suggests portal hypertension. 4. Right lower lobe bronchial wall thickening and secretions. ACT 112: Negative or not required by law. Electronically signed by: Cipriano Sandoval M.D. 01/13/2023 5:26 PM
[2023-01-13] MEDS: Heparin IV Adult Wt-Based Standard *NO* Bolus Protocol IV SCH ×6 (18:00→22:46)
[2023-01-13] MEDS: HEPARIN 25000 UNIT/500 ML D5W IV ONE ×2 (18:01→18:52)
[2023-01-13] MEDS: HEPARIN SODIUM/DEXTROSE 25,000 UNITS/500 ML BAG IV SCH (18:40)
[2023-01-13 19:19] LABS: Partial Thromboplastin Ratio 0.9; Partial Thromboplastin Time 25.9 Seconds (21.0-31.0)
[2023-01-13] MEDS ORDERED: SODIUM CHLORIDE 0.9% 1000ML 1,000 ML IV SCH (22:32)
[2023-01-13] MEDS ORDERED: ALBUTEROL 0.083% NEBU SOLN 3 ML VIAL NEB PRN (22:32)
[2023-01-13] MEDS ORDERED: Nursing to Pharmacy Communication SCH (22:45)
[2023-01-13] MEDS ORDERED: DOXYCYCLINE HYCLATE 100 MG in DEXTROSE 5% 100 ML IV SCH (23:00)
[2023-01-13] MEDS: dexAMETHasone 6 MG in SYRINGE 0 ML IV SCH (23:08)
[2023-01-13] MEDS: METOPROLOL TARTRATE 25 MG TAB PO SCH (23:09)
[2023-01-14] MEDS: MELATONIN 3 MG TAB PO PRN ×2 (00:52→20:40)
[2023-01-14] MEDS: ACETAMINOPHEN 325 MG TAB PO PRN (00:52)
[2023-01-14 01:40] LABS: Partial Thromboplastin Ratio 1.7
[2023-01-14 01:48] LABS: Partial Thromboplastin Time 47.3 Seconds (21.0-31.0)
[2023-01-14 04:41] LABS: Base Excess VBG 4.5 mEq/L; HCO3 VBG 31 mmol/L; Oxygen Saturation VBG 85.3 %; PCO2 VBG 54 mmHg (38-50); PO2 VBG 50 mmHg; pH VBG 7.37 (7.36-7.41)
[2023-01-14 04:51] LABS: Basophils # (auto) 0.02 K/uL (0-0.2); Basophils % (auto) 0.1 %; Hematocrit (blood only) 45.5 % (37.0-47.0); Hemoglobin 15.1 g/dl (12.0-16.0); Immature Granulocytes # (auto) 0.08 K/uL (0.01-0.20); Immature Granulocytes % (auto) 0.6 %; Lymphocytes # (auto) 1.83 K/uL (1.2-3.4); Lymphocytes % (auto) 12.8 %; Mean Corpuscular Hemoglobin 31.1 pg (25.0-34.0); Mean Corpuscular Hgb Conc 33.2 g/dL (32.0-36.0); Mean Corpuscular Volume 93.6 fL (80.0-100.0); Mean Platelet Volume 11.3 fL (9.4-12.4); Monocytes # (auto) 0.15 K/uL (0.11-0.59); Neutrophils # (auto) 12.23 K/uL (1.40-6.50); Neutrophils % (auto) 85.5 %; Platelet Count 184 K/uL (130-400); RDW Standard Deviation 44.9 fL (36.4-46.3); Red Blood Count 4.86 M/uL (4.20-5.40); White Blood Count 14.31 K/ul (4.8-10.8)
[2023-01-14 05:06] LABS: Calcium 10.4 mg/dl (8.6-10.3); Chol HDL Ratio 3.7 (0-5); Creatinine Clr Calc Pharmacy 63.3 ml/min; Est GFR (African American) 91.9 ml/min; Est GFR (Non-African American) 79.3 ml/min; Potassium 4.6 mmol/L (3.5-5.1)
[2023-01-14 05:12] LABS: Troponin I High Sensitivity 15.2 pg/ml (0-14)
[2023-01-14] MEDS ORDERED: CEFEPIME 2,000 MG in SYRINGE 0 ML IV SCH (06:00)
--- NOTE | 2023-01-14 07:39 | Hospitalist Progress Note ---
Date of Service January 14, 2023 Assessment & Plan (1) Acute and chronic respiratory failure with hypoxia: (2) Pulmonary embolism: (3) COVID-19: Plan: Possible pneumonia Patient is 87-year-old female with PMH Alzheimer dementia, restrictive lung disease, asthma, exertional hypoxia, gout presented to ER for noted hypoxia of 85% in PCP clinic today. Chronic productive cough and chronic exertional SOB without reported increase. Denies fever/chills. No known COVID-19 exposure. Unclear In ER afebrile, P: 119, BP: 124/79, R: 22, 90% on 2L NC WBC: 15, lactate: 1.4, procalcitonin: 0.15. +COVID 19, negative influenza, RSV PCR. VBG: pH: 7.35, pCO2: 60, pO2: 60, HCO3: 33 CXR: Cardiomegaly without overt pulmonary edema. Mild bibasilar opacities which favor atelectasis. Possible trace bilateral pleural effusions. In ER given albuterol neb, Zithromax, cefepime, 125 mg Solu-Medrol IV CTA chest: 1. Several segmental and subsegmental pulmonary emboli within the right lung. 2. Small right pleural effusion. Adjacent airspace opacity favors atelectasis however an underlying pulmonary infarct would be difficult to exclude given pulmonary emboli. An infectious process is also within the differential but considered less likely. 3. Moderate cardiomegaly and coronary artery calcification and mild dilatation of the ascending aorta. Dilatation of the central pulmonary arteries which suggests portal hypertension. 4. Right lower lobe bronchial wall thickening and secretions. Airborne isolation Supplemental oxygen as needed Started Heparin IV - continue for now. Monitor for any signs of bleeding Albuterol neb as needed Dexamethasone 6mg IV daily Incentive spirometry Cefepime, doxycycline Echo ordered CBC, BMP in a.m. (4) Restrictive airway disease: Plan: History asthma, restrictive airway disease, exertional hypoxia Awaiting outpatient oxygen for use with ambulation Follows with [facility] pulmonology Continue home inhaler Albuterol nebs prn Further treatment as above (5) AMS (altered mental status): (6) Alzheimer disease: Plan: Likely metabolic encephalopathy on chronic dementia CT head: No acute intracranial abnormality. Acute maxillary sinusitis. UA pending Monitor for delirium (7) Sinus tachycardia: Plan: Sinus tachycardia in ER Likely secondary to underlying illness with PE, COVID-19 Monitor on tele (8) Elevated troponin: (9) LBBB (left bundle branch block): Plan: Initial high-sensitivity troponin: 18.6 EKG: Sinus tachycardia, LBBB, PVCs. Last EKG 2011 without LBBB Denies chest pain Possible demand ischemia secondary to hypoxia, PE, COVID-19 Will trend troponin Echo troponin 18 -> 15 (10) PVC (premature ventricular contraction): Plan: PVCs noted on EKG Start metoprolol tartrate 12.5mg BID (11) Hypercalcemia: Plan: Ca: 11 -> 10.4 9after IVF) Vitamin D, PTH, parathyroid related protein pending (12) Gout: Plan: Continue allopurinol DVT Prophylaxis Heparin IV for PE present upon arrival Full Code as per discussion with pt, and pt's family. Wants initial attempt but would not want prolonged life support if poor prognosis Follows with Dr Kaur for routine care Admission and Anticipated Discharge Date Admission Date: January 13, 2023 Subjective Pt seen in follow up of hypoxia, PE, + covid Laying in bed in no acute distress, on supplemental oxygen, 4L Family present at the bedside Patient is awake alert able to answer simple questions appropriately, however very hard of hearing, and gets easily confused Denies any chest pain, breathing is easier No fevers chills, no abdominal pain, nausea or vomiting Family says they will try to bring the hearing aids Review of Systems Review of Systems: All systems reviewed & are unremarkable except as noted in Subjective Physical Exam Physical Exam: General: overweight elderly F in NAD on suppl. O2 Head: normocephalic, atraumatic Eyes: conjunctiva non-injected, anicteric ENT: normal inspection external ears, nose, mucous membranes moist Neck: supple Lungs: no respiratory distress on current 4L oxygen via NC, scant wheezing CV: RRR, + murmur, trace-1+ pretibial edema Abd: normal BS, soft, non-tender Ext: no calf tenderness, moves extremities Neuro: Alert, oriented to person, normal affect, speech fluent, no facial symmetry, very hard of hearing, moves extremity Skin: warm, dry Results & Data Results & Data Vital Signs (Past 12 Hours) Vital Signs Temp Pulse Pulse Resp BP BP Pulse Ox 01/14/23 03:00 36.5 C 55 L 18 125/75 93 01/13/23 22:42 79 01/13/23 23:28 01/13/23 22:32 36.5 C 82 18 141/75 H 93 01/13/23 22:32 01/13/23 21:00 72 22 136/76 95 01/13/23 20:12 76 01/13/23 19:58 81 17 127/74 95 Pulse Ox O2 Del Method O2 Del Method O2 Flow Rate O2 Flow Rate 01/14/23 03:00 Nasal Cannula 6 01/13/23 22:42 01/13/23 23:28 Nasal Cannula 6 01/13/23 22:32 Nasal Cannula 6 01/13/23 22:32 93 Nasal Cannula 6 01/13/23 21:00 Nasal Cannula 6 01/13/23 20:12 01/13/23 19:58 Nasal Cannula 6 Medications Administered Current Inpatient Medications Acetaminophen (Acetaminophen 325 Mg Tab) 650 mg PO Q4H PRN PRN Reason: Pain or Fever Stop: 02/12/23 22:31 Last Admin: 01/14/23 00:52 Dose: 650 mg Albuterol (Albuterol 0.083% Nebu Soln 3 Ml Vial) 2.5 mg NEB Q6R PRN; Protocol PRN Reason: Shortness Of Breath Or Wheezing Stop: 02/12/23 22:31 Allopurinol (Allopurinol 100 Mg Tab) 100 mg PO DAILY [facility] Stop: 02/13/23 08:59 Fluticasone/Vilanterol (Fluticasone/Vilanterol 200/25mcg 14 Puffs/Inhaler) 1 puffs INH DAILY [facility] Stop: 02/13/23 08:59 Heparin Sodium/Dextrose (Heparin Sodium/Dextrose) 25,000 units in 500 mls @ 23 mls/hr IV .[id number] [facility]; Protocol Stop: 02/12/23 17:59 Last Titration: 01/14/23 06:49 Dose: 1,150 units/hr, 23 mls/hr Cefepime HCl 2,000 mg/ Syringe 20 mls @ 5 mls/min IV Q12H [facility]; Protocol Stop: 01/21/23 05:59 Last Admin: 01/14/23 05:13 Dose: 5 mls/min Doxycycline Hyclate 100 mg/ (Dextrose) 110 mls @ 50 mls/hr IV Q12H [facility] Stop: 01/20/23 22:31 Last Infusion: 01/14/23 01:25 Dose: Infused Dexamethasone 6 mg/ Syringe 1.5 mls @ 1 mls/min IV DAILY [facility] Stop: 01/23/23 22:31 Last Admin: 01/13/23 23:08 Dose: 1 mls/min Sodium Chloride (Nss 1000ml) 1,000 mls @ 100 mls/hr IV .Q10H [facility] Stop: 01/14/23 08:31 Last Admin: 01/13/23 23:08 Dose: 100 mls/hr Melatonin (Melatonin 3 Mg Tab) 3 mg PO HS PRN PRN Reason: Sleep Stop: 02/13/23 00:46 Last Admin: 01/14/23 00:52 Dose: 3 mg Metoprolol Tartrate (Metoprolol Tartrate 25 Mg Tab) 12.5 mg PO BID [facility] Stop: 02/12/23 22:31 Last Admin: 01/13/23 23:09 Dose: 12.5 mg Polyethylene Glycol (Polyethylene (Miralax) 17 Gm Pack) 17 gm PO DAILY PRN PRN Reason: Constipation Stop: 02/12/23 22:31
[2023-01-14] MEDS: METOPROLOL TARTRATE 25 MG TAB PO SCH ×2 (09:07→20:36)
[2023-01-14] MEDS: allopurinoL 100 MG TAB PO SCH (09:07)
[2023-01-14] MEDS: FLUTICASONE/VILANTEROL 200/25MCG 14 PUFFS/INHALER INH SCH (09:09)
[2023-01-14] MEDS: dexAMETHasone 6 MG in SYRINGE 0 ML IV SCH (10:24)
[2023-01-14] MEDS: DOXYCYCLINE HYCLATE 100 MG CAP PO SCH ×2 (13:01→20:35)
[2023-01-14] MEDS: CEFEPIME 2,000 MG in SYRINGE 0 ML IV SCH ×2 (14:59→20:37)
[2023-01-14] MEDS: HEPARIN SODIUM/DEXTROSE 25,000 UNITS/500 ML BAG IV SCH (15:07)
[2023-01-14] MEDS: guaiFENesin 600 MG TABCR PO SCH (20:36)
--- NOTE | 2023-01-14 23:10 | Electrocardiogram Report ---
Test Reason : Blood Pressure : / mmHG Vent. Rate : 063 BPM Atrial Rate : 063 BPM P-R Int : 176 ms QRS Dur : 132 ms QT Int : 448 ms P-R-T Axes : 084 122 009 degrees QTc Int : 458 ms Sinus rhythm with Premature atrial complexes Left bundle branch block Abnormal ECG When compared with ECG of 13-JAN-2023 11:56, Premature ventricular complexes are no longer Present Confirmed by Jaime Haq ([id number]) on 01/14/2023 11:10:37 PM Referred By: Mitch Kaur Confirmed By:Jaime Haq
[2023-01-15 06:15] LABS: Hematocrit (blood only) 45.6 % (37.0-47.0); Hemoglobin 15.7 g/dl (12.0-16.0); Mean Corpuscular Hgb Conc 34.4 g/dL (32.0-36.0); Mean Corpuscular Volume 93.1 fL (80.0-100.0); Mean Platelet Volume 11.7 fL (9.4-12.4); Platelet Count 217 K/uL (130-400); RDW Coefficient of Variation 13.2 % (11.5-14.5); RDW Standard Deviation 44.8 fL (36.4-46.3); White Blood Count 20.95 K/ul (4.8-10.8)
[2023-01-15] MEDS: CEFEPIME 2,000 MG in SYRINGE 0 ML IV SCH ×3 (06:22→23:22)
[2023-01-15 06:30] LABS: BUN Creatinine Ratio 37.7 (10-20); Calcium 11.2 mg/dl (8.6-10.3); Creatinine Clr Calc Pharmacy 67.5 ml/min; Est GFR (African American) 93.8 ml/min; Est GFR (Non-African American) 80.9 ml/min; Magnesium 1.7 mg/dl (1.7-2.4); Phosphorus 2.1 mg/dl (2.5-4.9); Potassium 4.2 mmol/L (3.5-5.1)
[2023-01-15 07:12] LABS: Base Excess ABG 5.3 mEq/L (-9-1.8); HCO3 ABG 32 mmol/L (19-24); Oxygen Saturation ABG 98.5 % (90-95); PCO2 ABG 54 mmHg (35-46); PO2 ABG 84 mmHg (80-95); pH ABG 7.38 (7.35-7.45)
[2023-01-15 07:27] LABS: Allen Test POS (Pos)
[2023-01-15] MEDS: allopurinoL 100 MG TAB PO SCH (08:37)
[2023-01-15] MEDS: METOPROLOL TARTRATE 25 MG TAB PO SCH ×2 (08:37→19:47)
[2023-01-15] MEDS: guaiFENesin 600 MG TABCR PO SCH ×2 (08:38→19:48)
[2023-01-15] MEDS: FLUTICASONE/VILANTEROL 200/25MCG 14 PUFFS/INHALER INH SCH (08:40)
[2023-01-15] MEDS: dexAMETHasone 6 MG in SYRINGE 0 ML IV SCH (08:41)
--- NOTE | 2023-01-15 09:08 | Hospitalist Progress Note ---
Date of Service January 15, 2023 Assessment & Plan (1) Acute and chronic respiratory failure with hypoxia: (2) Pulmonary embolism: (3) COVID-19: Plan: Possible pneumonia Patient is 87-year-old female with PMH Alzheimer dementia, restrictive lung disease, asthma, exertional hypoxia, gout presented to ER for noted hypoxia of 85% in PCP clinic today. Chronic productive cough and chronic exertional SOB without reported increase. Denies fever/chills. No known COVID-19 exposure. Unclear In ER afebrile, P: 119, BP: 124/79, R: 22, 90% on 2L NC WBC: 15, lactate: 1.4, procalcitonin: 0.15. +COVID 19, negative influenza, RSV PCR. VBG: pH: 7.35, pCO2: 60, pO2: 60, HCO3: 33 CXR: Cardiomegaly without overt pulmonary edema. Mild bibasilar opacities which favor atelectasis. Possible trace bilateral pleural effusions. In ER given albuterol neb, Zithromax, cefepime, 125 mg Solu-Medrol IV CTA chest: 1. Several segmental and subsegmental pulmonary emboli within the right lung. 2. Small right pleural effusion. Adjacent airspace opacity favors atelectasis however an underlying pulmonary infarct would be difficult to exclude given pulmonary emboli. An infectious process is also within the differential but considered less likely. 3. Moderate cardiomegaly and coronary artery calcification and mild dilatation of the ascending aorta. Dilatation of the central pulmonary arteries which suggests portal hypertension. 4. Right lower lobe bronchial wall thickening and secretions. Airborne isolation Supplemental oxygen as needed Started Heparin IV - continue for now. Monitor for any signs of bleeding Albuterol neb as needed Dexamethasone 6mg IV daily Incentive spirometry Cefepime, doxycycline Echo ordered CBC, BMP in a.m. (4) Restrictive airway disease: Plan: History asthma, restrictive airway disease, exertional hypoxia Awaiting outpatient oxygen for use with ambulation Follows with [facility] pulmonology Continue home inhaler Albuterol nebs prn Further treatment as above (5) AMS (altered mental status): (6) Alzheimer disease: Plan: Likely metabolic encephalopathy on chronic dementia CT head: No acute intracranial abnormality. Acute maxillary sinusitis. UA negative Monitor for delirium (7) Sinus tachycardia: Plan: Sinus tachycardia in ER Likely secondary to underlying illness with PE, COVID-19 Monitor on tele Now HR 73 (8) Elevated troponin: (9) LBBB (left bundle branch block): Plan: Initial high-sensitivity troponin: 18.6 EKG: Sinus tachycardia, LBBB, PVCs. Last EKG 2011 without LBBB Denies chest pain Possible demand ischemia secondary to hypoxia, PE, COVID-19 Will trend troponin Echo troponin 18 -> 15 (10) PVC (premature ventricular contraction): Plan: PVCs noted on EKG Start metoprolol tartrate 12.5mg BID (11) Hypercalcemia: Plan: Ca: 11 -> 10.4 (after IVF) ->11.2 Vitamin D, PTH, parathyroid related protein pending Consulted and discussed w/ nephrology - plan for IVF and IV lasix [facility] monitor BMP AM ordered (12) Gout: Plan: Continue allopurinol DVT Prophylaxis Heparin IV for PE present upon arrival Full Code as per discussion with pt, and pt's family. Wants initial attempt but would not want prolonged life support if poor prognosis Follows with Dr Kaur for routine care Admission and Anticipated Discharge Date Admission Date: January 13, 2023 Subjective Pt seen in follow up of hypoxia, PE, + covid Laying in bed in no acute distress, on supplemental oxygen, 3L Family present at the bedside Patient is awake alert able to answer simple questions appropriately, however very hard of hearing, and gets easily confused Denies any chest pain, breathing is easier No fevers chills, no abdominal pain, nausea or vomiting Yesterday - Family was at the bedside and updated. Nobody currently at the bedside. Family is supposed to bring the hearing aids. Discussed w/ nephrology re: hypercalcemia - plan for IV lasix and IVF Review of Systems Review of Systems: All systems reviewed & are unremarkable except as noted in Subjective Physical Exam Physical Exam: General: overweight elderly F in NAD on suppl. O2 Head: normocephalic, atraumatic Eyes: conjunctiva non-injected, anicteric ENT: normal inspection external ears, nose, mucous membranes moist Neck: supple Lungs: no respiratory distress on current 3L oxygen via NC, minimal rhonchi, scant wheezing CV: RRR, + murmur, trace-1+ pretibial edema Abd: normal BS, soft, non-tender Ext: no calf tenderness, moves extremities Neuro: Alert, oriented to person, normal affect, speech fluent, no facial symmetry, very hard of hearing, moves extremity Skin: warm, dry Results & Data Results & Data Vital Signs (Past 12 Hours) Vital Signs Temp Pulse Pulse Resp BP BP Pulse Ox 01/15/23 08:54 93 01/15/23 07:36 36.6 C 69 18 127/70 95 01/15/23 00:00 73 01/15/23 02:39 35.9 C L 84 18 180/82 H 93 01/14/23 22:11 36.7 C 70 18 113/58 L 94 O2 Del Method O2 Flow Rate 01/15/23 08:54 Nasal Cannula 3 01/15/23 07:36 Nasal Cannula 4 01/15/23 00:00 01/15/23 02:39 Nasal Cannula 4 01/14/23 22:11 Nasal Cannula 4 Laboratory Results 01/15/23 01/15/23 01/15/23 Range/Units 07:00 05:38 05:38 WBC 20.95 H (4.8-10.8) K/ul RBC 4.90 (4.20-5.40) M/uL Hgb 15.7 (12.0-16.0) g/dl Hct 45.6 (37.0-47.0) % MCV 93.1 (80.0-100.0) fL MCH 32.0 (25.0-34.0) pg MCHC 34.4 (32.0-36.0) g/dL RDW Std Deviation 44.8 (36.4-46.3) fL RDW Coeff of Stew 13.2 (11.5-14.5) % Plt Count 217 (130-400) K/uL MPV 11.7 (9.4-12.4) fL APTT (21.0-31.0) Seconds PTT Ratio ABG pH 7.38 (7.35-7.45) ABG pCO2 54 H (35-46) mmHg ABG pO2 84 (80-95) mmHg ABG HCO3 32 H (19-24) mmol/L ABG O2 Saturation 98.5 H (90-95) % ABG Base Excess 5.3 H (-9-1.8) mEq/L Jim Test POS (Pos) Oxygen Given 4 L Sodium 139 (136-145) mmol/L Potassium 4.2 (3.5-5.1) mmol/L Chloride 105 (98-107) mmol/L Carbon Dioxide 29 (21-32) mmol/L Anion Gap 5 (3-11) BUN 23 (6-23) mg/dl Creatinine 0.61 (0.6-1.2) mg/dl Est Cr Clr Drug Dosing 67.5 ml/min Est GFR ( Amer) 93.8 ml/min Est GFR (Non-Af Amer) 80.9 ml/min BUN/Creatinine Ratio 37.7 H (10-20) Glucose 114 H (70-99(Fasting)) mg/dl Calcium 11.2 H (8.6-10.3) mg/dl Phosphorus 2.1 L (2.5-4.9) mg/dl Magnesium 1.7 (1.7-2.4) mg/dl 01/15/23 Range/Units 05:38 WBC (4.8-10.8) K/ul RBC (4.20-5.40) M/uL Hgb (12.0-16.0) g/dl Hct (37.0-47.0) % MCV (80.0-100.0) fL MCH (25.0-34.0) pg MCHC (32.0-36.0) g/dL RDW Std Deviation (36.4-46.3) fL RDW Coeff of Stew (11.5-14.5) % Plt Count (130-400) K/uL MPV (9.4-12.4) fL APTT 55.0 H* (21.0-31.0) Seconds PTT Ratio 2.0 ABG pH (7.35-7.45) ABG pCO2 (35-46) mmHg ABG pO2 (80-95) mmHg ABG HCO3 (19-24) mmol/L ABG O2 Saturation (90-95) % ABG Base Excess (-9-1.8) mEq/L Jim Test (Pos) Oxygen Given Sodium (136-145) mmol/L Potassium (3.5-5.1) mmol/L Chloride (98-107) mmol/L Carbon Dioxide (21-32) mmol/L Anion Gap (3-11) BUN (6-23) mg/dl Creatinine (0.6-1.2) mg/dl Est Cr Clr Drug Dosing ml/min Est GFR ( Amer) ml/min Est GFR (Non-Af Amer) ml/min BUN/Creatinine Ratio (10-20) Glucose (70-99(Fasting)) mg/dl Calcium (8.6-10.3) mg/dl Phosphorus (2.5-4.9) mg/dl Magnesium (1.7-2.4) mg/dl Medications Administered Current Inpatient Medications Acetaminophen (Acetaminophen 325 Mg Tab) 650 mg PO Q4H PRN PRN Reason: Pain or Fever Stop: 02/12/23 22:31 Last Admin: 01/14/23 00:52 Dose: 650 mg Albuterol (Albuterol 0.083% Nebu Soln 3 Ml Vial) 2.5 mg NEB Q6R PRN; Protocol PRN Reason: Shortness Of Breath Or Wheezing Stop: 02/12/23 22:31 Allopurinol (Allopurinol 100 Mg Tab) 100 mg PO DAILY [facility] Stop: 02/13/23 08:59 Last Admin: 01/15/23 08:37 Dose: 100 mg Doxycycline Hyclate (Doxycycline Hyclate 100 Mg Cap) 100 mg PO Q12H [facility] Stop: 01/20/23 23:59 Last Admin: 01/14/23 20:35 Dose: 100 mg Fluticasone/Vilanterol (Fluticasone/Vilanterol 200/25mcg 14 Puffs/Inhaler) 1 puffs INH DAILY [facility] Stop: 02/13/23 08:59 Last Admin: 01/15/23 08:40 Dose: 1 puffs Guaifenesin (Guaifenesin 600 Mg Tabcr) 600 mg PO Q12 [facility] Stop: 02/13/23 20:59 Last Admin: 01/15/23 08:38 Dose: 600 mg Heparin Sodium/Dextrose (Heparin Sodium/Dextrose) 25,000 units in 500 mls @ 23 mls/hr IV .[id number] [facility]; Protocol Stop: 02/12/23 17:59 Last Titration: 01/15/23 07:15 Dose: 1,150 units/hr, 23 mls/hr Dexamethasone 6 mg/ Syringe 1.5 mls @ 1 mls/min IV DAILY [facility] Stop: 01/23/23 22:31 Last Admin: 01/15/23 08:41 Dose: 1 mls/min Cefepime HCl 2,000 mg/ Syringe 20 mls @ 5 mls/min IV Q8 [facility]; Protocol Stop: 01/21/23 13:59 Last Admin: 01/15/23 06:22 Dose: 5 mls/min Melatonin (Melatonin 3 Mg Tab) 3 mg PO HS PRN PRN Reason: Sleep Stop: 02/13/23 00:46 Last Admin: 01/14/23 20:40 Dose: 3 mg Metoprolol Tartrate (Metoprolol Tartrate 25 Mg Tab) 12.5 mg PO BID [facility] Stop: 02/12/23 22:31 Last Admin: 01/15/23 08:37 Dose: 12.5 mg Polyethylene Glycol (Polyethylene (Miralax) 17 Gm Pack) 17 gm PO DAILY PRN PRN Reason: Constipation Stop: 02/12/23 22:31
[2023-01-15] MEDS: MAGNESIUM OXIDE 400 MG TAB PO SCH (09:24)
[2023-01-15] MEDS ORDERED: FUROSEMIDE INJ 20 MG/2 ML VIAL IV ONE (09:30)
[2023-01-15] MEDS: CALCITONIN SALMON 400 UNITS/2 ML SQ SCH ×2 (10:30→23:25)
[2023-01-15] MEDS: SODIUM CHLORIDE 0.9% 1000ML 1,000 ML IV SCH ×2 (10:32→23:19)
[2023-01-15] MEDS: DOXYCYCLINE HYCLATE 100 MG CAP PO SCH ×2 (10:35→23:23)
[2023-01-15] MEDS: HEPARIN SODIUM/DEXTROSE 25,000 UNITS/500 ML BAG IV SCH (12:46)
--- NOTE | 2023-01-15 14:35 | Consultation Report ---
NEPHROLOGY CONSULTATION NOTE DATE OF SERVICE: 01/15/2023. REASON FOR CONSULTATION: Hypercalcemia. HISTORY OF PRESENT ILLNESS: The patient is an 87-year-old female with history of Alzheimer's dementi a, restrictive lung disease, asthma, presented to the Emergency Department with hypoxia in the PCP cl nita. She was having chronic productive cough as well as exertional shortness of breath for the last few days. She has been found to have COVID infection. Her mental status has also been getting some what worse. It is hard to get any accurate history from the patient. Her serum calcium was found to be elevated at 11.1. She did receive some IV fluid, then it went down to 10.4, but today it is again elevated at 11.2, so far, she has not received any calcitonin or Zometa. Multiple tests for hypercal cemia has been sent, but everything is pending other than PTH, which is at 70 and vitamin D is 29. ALLERGIES: CRESTOR. MEDICATIONS: Home medication list was reviewed and includes allopurinol and Wixela inhaler. PAST MEDICAL AND SURGICAL HISTORY: Includes Alzheimer's disease with dementia, asthma, gout, restric tive airway disease. Hysterectomy. FAMILY HISTORY: Negative for renal disease. SOCIAL HISTORY: Former smoker. No alcohol. She lives at home. REVIEW OF SYSTEMS: Unobtainable as the patient is quite confused. She is also extremely hard of hea ring. PHYSICAL EXAMINATION: GENERAL: Elderly white female who is not in any overt respiratory distress. She is awake and alert. VITAL SIGNS: Blood pressure is 127/70, 93% on 3 liters nasal cannula, temperature 36.6, pulse rate 6 9. HEENT: Mucous membranes are moist. NECK: Supple. No jugular venous distention. CHEST: Bilateral decreased breath sounds, occasional crackles. CARDIOVASCULAR: S1 and S2 regular. Soft systolic murmur heard. ABDOMEN: Soft, nontender. EXTREMITIES: Show no edema. LABORATORY TEST: Shows a WBC count is rising and is up to 21,000 today, hemoglobin was 16.5 on admis mehreen and is down to 15.7 now. PCO2 and the blood gas was 54, BUN 23, creatinine 0.6, sodium 139, pota ssium 4.2, chloride 105, bicarb 29, phosphorus 2.1, magnesium 1.7, calcium 11.2. Albumin on admissio n was 4. She had a CT chest angiogram, which shows multiple pulmonary embolism within the right lung . She also has some small right pleural effusion and possibility of underlying pulmonary infarct. M oderate cardiomegaly. Right bronchial thickening. ASSESSMENT AND PLAN: An 87-year-old female admitted with hypoxia and worsening shortness of breath w ith cough. Based on the imaging, it appears she has combination of pulmonary embolism as well as pos sible pneumonia in the right lung. I have been consulted for hypercalcemia. Hypercalcemia. It is mildly elevated at 11.2. However, she has a difficult combination of hydration status. Looking at her hemoglobin and her overall trend it appears she might be somewhat volume dep leted and needs some IV fluid. However, her x-ray also has pleural effusion, which I think is reacti ve to pneumonia and pulmonary embolism rather than fluid overload. All the tests relevant for hyperc alcemia has been ordered. PTH is not suppressed and vitamin D is within normal range. However, I do not think this is a case of primary hyperparathyroidism, but this will be more evident in the coming days. We will use calcitonin 200 units q.12 hours x3 doses. We will also use some gentle IV hydrat ion of 1000 mL of normal saline at 80 mL per hour. I am not sure how much her urine output would be so given this, we will also use Lasix 40 mg IV one dose to make sure we achieve a good diuresis. A go od diuresis is needed to bring the calcium down. Do daily renal panel at this time, I will continue t o follow. Thank you very much for the consult. Job ID: [id number]
[2023-01-15] MEDS: ENOXAPARIN 80 MG/0.8 ML SYR SQ SCH (19:43)
[2023-01-15] MEDS ORDERED: STOP ORDER [HEPARIN DRIP] ONE (20:00)
[2023-01-16] MEDS: CEFEPIME 2,000 MG in SYRINGE 0 ML IV SCH ×3 (06:12→21:42)
[2023-01-16] MEDS ORDERED: OLANZapine 10 MG/2.1 ML SDV IM STA (08:09)
[2023-01-16] MEDS ORDERED: LORazepam 2 MG/1 ML VIAL IV STA ×2 (08:10→11:44)
[2023-01-16] MEDS: dexAMETHasone 6 MG in SYRINGE 0 ML IV SCH (08:22)
[2023-01-16] MEDS: ENOXAPARIN 80 MG/0.8 ML SYR SQ SCH ×2 (08:22→21:46)
[2023-01-16] MEDS: MAGNESIUM OXIDE 400 MG TAB PO SCH (08:25)
[2023-01-16] MEDS: METOPROLOL TARTRATE 25 MG TAB PO SCH ×2 (08:25→21:43)
[2023-01-16] MEDS: allopurinoL 100 MG TAB PO SCH (08:25)
[2023-01-16] MEDS: guaiFENesin 600 MG TABCR PO SCH ×2 (08:25→21:45)
[2023-01-16] MEDS: DOXYCYCLINE HYCLATE 100 MG CAP PO SCH ×2 (08:25→21:43)
--- NOTE | 2023-01-16 09:04 | Hospitalist Progress Note ---
Date of Service January 16, 2023 Assessment & Plan (1) Acute and chronic respiratory failure with hypoxia: (2) Pulmonary embolism: (3) COVID-19: Plan: Possible pneumonia Patient is 87-year-old female with PMH Alzheimer dementia, restrictive lung disease, asthma, exertional hypoxia, gout presented to ER for noted hypoxia of 85% in PCP clinic today. Chronic productive cough and chronic exertional SOB without reported increase. Denies fever/chills. No known COVID-19 exposure. Unclear In ER afebrile, P: 119, BP: 124/79, R: 22, 90% on 2L NC WBC: 15, lactate: 1.4, procalcitonin: 0.15. +COVID 19, negative influenza, RSV PCR. VBG: pH: 7.35, pCO2: 60, pO2: 60, HCO3: 33 CXR: Cardiomegaly without overt pulmonary edema. Mild bibasilar opacities which favor atelectasis. Possible trace bilateral pleural effusions. In ER given albuterol neb, Zithromax, cefepime, 125 mg Solu-Medrol IV CTA chest: 1. Several segmental and subsegmental pulmonary emboli within the right lung. 2. Small right pleural effusion. Adjacent airspace opacity favors atelectasis however an underlying pulmonary infarct would be difficult to exclude given pulmonary emboli. An infectious process is also within the differential but considered less likely. 3. Moderate cardiomegaly and coronary artery calcification and mild dilatation of the ascending aorta. Dilatation of the central pulmonary arteries which suggests portal hypertension. 4. Right lower lobe bronchial wall thickening and secretions. Airborne isolation Supplemental oxygen as needed Started Heparin IV -> switched to lovenox subq therapeutic dose. Monitor for any signs of bleeding Albuterol neb as needed Dexamethasone 6mg IV daily Incentive spirometry Cefepime, doxycycline Echo obtained Mild concentric LVH. There is a focal akinesis of the basal inferior segment consistent with chronic scar. LV wall motion is otherwise normal. LV systolic function is normal. LVEF 55 to 60%. Aortic valve sclerosis mild, without significant aortic valvular stenosis. There is mild mitral regurg. Grade 1 diastolic dysfunction CBC, BMP daily Electrolyte abnormalities Hypomagnesemia, hypophosphatemia, hypokalemia -Replete an monitor (4) Restrictive airway disease: Plan: History asthma, restrictive airway disease, exertional hypoxia Awaiting outpatient oxygen for use with ambulation Follows with [facility] pulmonology Continue home inhaler Albuterol nebs prn Further treatment as above (5) AMS (altered mental status): (6) Alzheimer disease: Plan: Likely metabolic encephalopathy on chronic dementia CT head: No acute intracranial abnormality. Acute maxillary sinusitis. UA negative Monitor for delirium (7) Sinus tachycardia: Plan: Sinus tachycardia in ER Likely secondary to underlying illness with PE, COVID-19 Monitor on tele Now HR 73 (8) Elevated troponin: (9) LBBB (left bundle branch block): Plan: Initial high-sensitivity troponin: 18.6 EKG: Sinus tachycardia, LBBB, PVCs. Last EKG 2011 without LBBB Denies chest pain Possible demand ischemia secondary to hypoxia, PE, COVID-19 trended troponin Echo obtained - as above troponin 18 -> 15 (10) PVC (premature ventricular contraction): Plan: PVCs noted on EKG Started metoprolol tartrate 12.5mg BID (11) Hypercalcemia: Plan: Ca: 11 -> 10.4 (after IVF) ->11.2 Vitamin D, PTH, parathyroid related protein ordered Consulted and discussed w/ nephrology - IVF , IV lasix, calcitonin Cause is somewhat unclear but could be volume depletion/ Mild Hyperparathyroidism given that PTH was not suppressed on admission. Now normal after IVF, Lasix and Calcitonin. Other causes of Hypercalcemia is pending at this time. Give NS another 500 ml today. No need of lasix and/or more calcitonin Current Ca 9.9 Cont. to closely monitor BMP AM ordered (12) Gout: Plan: Continue allopurinol DVT Prophylaxis Heparin IV for PE present upon arrival Full Code as per discussion with pt, and pt's family. Wants initial attempt but would not want prolonged life support if poor prognosis Follows with Dr Kaur for routine care Admission and Anticipated Discharge Date Admission Date: January 13, 2023 Subjective Pt seen in follow up of hypoxia, PE, + covid Overnight patient was not sleeping, and this morning more confused, agitated, received small dose of Ativan One-on-one sitter currently present at the bedside, patient sleeping Nephrology following for hypercalcemia Review of Systems Review of Systems: All systems reviewed & are unremarkable except as noted in Subjective Physical Exam Physical Exam: General: overweight elderly F in NAD on suppl. O2 Head: normocephalic, atraumatic Eyes: conjunctiva non-injected, anicteric ENT: normal inspection external ears, nose, mucous membranes moist Neck: supple Lungs: no respiratory distress on current 3L oxygen via NC, minimal rhonchi, scant wheezing CV: RRR, + murmur, trace-1+ pretibial edema Abd: normal BS, soft, non-tender Ext: no calf tenderness, moves extremities Neuro: Alert, oriented to person, normal affect, speech fluent, no facial symmetry, very hard of hearing, moves extremity Skin: warm, dry Results & Data Results & Data Vital Signs (Past 12 Hours) Vital Signs Temp Pulse Pulse Resp BP Pulse Ox O2 Del Method 01/16/23 02:22 36.6 C 91 H 18 159/94 H 91 Nasal Cannula 01/16/23 00:34 83 01/15/23 23:14 37.2 C 83 18 163/84 H 93 Nasal Cannula O2 Flow Rate 01/16/23 02:22 2 01/16/23 00:34 01/15/23 23:14 2 Laboratory Results 01/16/23 01/16/23 Range/Units 08:44 08:44 APTT 28.2 (21.0-31.0) Seconds PTT Ratio 1.0 Sodium 140 (136-145) mmol/L Potassium 3.4 L (3.5-5.1) mmol/L Chloride 103 (98-107) mmol/L Carbon Dioxide 32 (21-32) mmol/L Anion Gap 5 (3-11) BUN 17 (6-23) mg/dl Creatinine 0.54 L (0.6-1.2) mg/dl Est Cr Clr Drug Dosing 75.5 ml/min Est GFR ( Amer) 97.6 ml/min Est GFR (Non-Af Amer) 84.3 ml/min BUN/Creatinine Ratio 31.5 H (10-20) Glucose 90 (70-99(Fasting)) mg/dl Calcium 9.9 (8.6-10.3) mg/dl Phosphorus 1.9 L (2.5-4.9) mg/dl Magnesium 1.4 L (1.7-2.4) mg/dl Medications Administered Current Inpatient Medications Acetaminophen (Acetaminophen 325 Mg Tab) 650 mg PO Q4H PRN PRN Reason: Pain or Fever Stop: 02/12/23 22:31 Last Admin: 01/14/23 00:52 Dose: 650 mg Albuterol (Albuterol 0.083% Nebu Soln 3 Ml Vial) 2.5 mg NEB Q6R PRN; Protocol PRN Reason: Shortness Of Breath Or Wheezing Stop: 02/12/23 22:31 Allopurinol (Allopurinol 100 Mg Tab) 100 mg PO DAILY [facility] Stop: 02/13/23 08:59 Last Admin: 01/16/23 08:25 Dose: 100 mg Calcitonin [place] (Calcitonin [place] 400 Units/2 Ml) 200 units SQ Q12H [facility] Stop: 02/14/23 09:29 Last Admin: 01/15/23 23:25 Dose: 200 units Doxycycline Hyclate (Doxycycline Hyclate 100 Mg Cap) 100 mg PO Q12H [facility] Stop: 01/20/23 23:59 Last Admin: 01/16/23 08:25 Dose: 100 mg Enoxaparin Sodium (Enoxaparin 80 Mg/0.8 Ml Syr) 80 mg SQ Q12H [facility] Stop: 02/14/23 19:59 Last Admin: 01/16/23 08:22 Dose: 80 mg Fluticasone/Vilanterol (Fluticasone/Vilanterol 200/25mcg 14 Puffs/Inhaler) 1 puffs INH DAILY [facility] Stop: 02/13/23 08:59 Last Admin: 01/15/23 08:40 Dose: 1 puffs Guaifenesin (Guaifenesin 600 Mg Tabcr) 600 mg PO Q12 [facility] Stop: 02/13/23 20:59 Last Admin: 01/16/23 08:25 Dose: 600 mg Dexamethasone 6 mg/ Syringe 1.5 mls @ 1 mls/min IV DAILY [facility] Stop: 01/23/23 22:31 Last Admin: 01/16/23 08:22 Dose: 1 mls/min Cefepime HCl 2,000 mg/ Syringe 20 mls @ 5 mls/min IV Q8 [facility]; Protocol Stop: 01/21/23 13:59 Last Admin: 01/16/23 06:12 Dose: 5 mls/min Sodium Chloride (Nss 1000ml) 1,000 mls @ 80 mls/hr IV .[id number] [facility] Stop: 02/14/23 09:29 Last Admin: 01/15/23 23:19 Dose: 80 mls/hr Magnesium Oxide (Magnesium Oxide 400 Mg Tab) 400 mg PO QAM [facility] Stop: 02/14/23 09:14 Last Admin: 01/16/23 08:25 Dose: 400 mg Melatonin (Melatonin 3 Mg Tab) 3 mg PO HS PRN PRN Reason: Sleep Stop: 02/13/23 00:46 Last Admin: 01/14/23 20:40 Dose: 3 mg Metoprolol Tartrate (Metoprolol Tartrate 25 Mg Tab) 12.5 mg PO BID [facility] Stop: 02/12/23 22:31 Last Admin: 01/16/23 08:25 Dose: 12.5 mg Polyethylene Glycol (Polyethylene (Miralax) 17 Gm Pack) 17 gm PO DAILY PRN PRN Reason: Constipation Stop: 02/12/23 22:31
[2023-01-16] MEDS: FLUTICASONE/VILANTEROL 200/25MCG 14 PUFFS/INHALER INH SCH (09:07)
[2023-01-16 09:20] LABS: BUN Creatinine Ratio 31.5 (10-20); Calcium 9.9 mg/dl (8.6-10.3); Creatinine Clr Calc Pharmacy 75.5 ml/min; Est GFR (African American) 97.6 ml/min; Est GFR (Non-African American) 84.3 ml/min; Magnesium 1.4 mg/dl (1.7-2.4); Phosphorus 1.9 mg/dl (2.5-4.9); Potassium 3.4 mmol/L (3.5-5.1)
[2023-01-16 09:56] LABS: Partial Thromboplastin Time 28.2 Seconds (21.0-31.0)
[2023-01-16] MEDS ORDERED: POTASSIUM PHOS 3 MMOL/1 ML INFUSION IV STA (09:59)
[2023-01-16] MEDS ORDERED: POTASSIUM PHOSPHATE 15 MMOL in SODIUM CHLORIDE 0.9% 250 ML IV ONE (10:15)
--- NOTE | 2023-01-16 10:41 | Nephrology Progress Note ---
Date of Service January 16, 2023 Assessment & Plan Admission and Anticipated Discharge Date Admission Date: January 13, 2023 Subjective S--no new issues. Lot of urine. Less o2 now. PHYSICAL EXAMINATION: GENERAL: Elderly white female who is not in any overt respiratory distress. She is awake and alert. HEENT: Mucous membranes are moist. NECK: Supple. No jugular venous distention. CHEST: Bilateral decreased breath sounds, occasional crackles. CARDIOVASCULAR: S1 and S2 regular. Soft systolic murmur heard. ABDOMEN: Soft, nontender. EXTREMITIES: Show no edema. LABORATORY TEST: Shows a WBC count is rising and is up to 21,000 today, hemoglobin was 16.5 on admission and is down to 15.7 now. PCO2 and the blood gas was 54, BUN 23, creatinine 0.6, sodium 139, potassium 4.2, chloride 105, bicarb 29, phosphorus 2.1, magnesium 1.7, calcium 11.2. Albumin on admission was 4. She had a CT chest angiogram, which shows multiple pulmonary embolism within the right lung. She also has some small right pleural effusion and possibility of underlying pulmonary infarct. Moderate cardiomegaly. Right bronchial thickening. ASSESSMENT AND PLAN: An 87-year-old female admitted with hypoxia and worsening shortness of breath with cough. Based on the imaging, it appears she has combination of pulmonary embolism as well as possible pneumonia in the right lung. I have been consulted for hypercalcemia. Hypercalcemia: Cause is somewhat unclear but could be volume depletion/ Mild Hyperparathyroidism given that PTH was not suppressed on admission. Now normal after IVF, Lasix and Calcitonin. Low phos and low mag and already got supplement. Other causes of Hypercalcemia is pending at this time. Give NS another 500 ml today. No need of lasix and/or more calcitonin Results & Data Vital Signs (Past 12 Hours) Vital Signs Temp Pulse Pulse Resp BP BP Pulse Ox 01/16/23 10:25 36.5 C 87 18 124/80 92 01/16/23 02:22 36.6 C 91 H 18 159/94 H 91 01/16/23 00:34 83 01/15/23 23:14 37.2 C 83 18 163/84 H 93 O2 Del Method O2 Flow Rate 01/16/23 10:25 Nasal Cannula 2 01/16/23 02:22 Nasal Cannula 2 01/16/23 00:34 01/15/23 23:14 Nasal Cannula 2
[2023-01-16] MEDS: CALCITONIN SALMON 400 UNITS/2 ML SQ SCH ×2 (10:59→21:42)
[2023-01-16] MEDS: SODIUM CHLORIDE 0.9% 1000ML 1,000 ML IV SCH ×2 (12:47→22:02)
[2023-01-16] MEDS: MAGNESIUM SULFATE / D5W 1 GM/100 ML BAG IV SCH ×2 (14:18→15:51)
[2023-01-17] MEDS: CEFEPIME 2,000 MG in SYRINGE 0 ML IV SCH ×3 (05:29→22:03)
[2023-01-17] MEDS: ACETAMINOPHEN 325 MG TAB PO PRN (05:29)
--- NOTE | 2023-01-17 07:44 | Hospitalist Progress Note ---
Date of Service January 17, 2023 Assessment & Plan (1) Acute and chronic respiratory failure with hypoxia: (2) Pulmonary embolism: (3) COVID-19: Plan: Possible pneumonia Patient is 87-year-old female with PMH Alzheimer dementia, restrictive lung disease, asthma, exertional hypoxia, gout presented to ER for noted hypoxia of 85% in PCP clinic today. Chronic productive cough and chronic exertional SOB without reported increase. Denies fever/chills. No known COVID-19 exposure. Unclear In ER afebrile, P: 119, BP: 124/79, R: 22, 90% on 2L NC WBC: 15, lactate: 1.4, procalcitonin: 0.15. +COVID 19, negative influenza, RSV PCR. VBG: pH: 7.35, pCO2: 60, pO2: 60, HCO3: 33 CXR: Cardiomegaly without overt pulmonary edema. Mild bibasilar opacities which favor atelectasis. Possible trace bilateral pleural effusions. In ER given albuterol neb, Zithromax, cefepime, 125 mg Solu-Medrol IV CTA chest: 1. Several segmental and subsegmental pulmonary emboli within the right lung. 2. Small right pleural effusion. Adjacent airspace opacity favors atelectasis however an underlying pulmonary infarct would be difficult to exclude given pulmonary emboli. An infectious process is also within the differential but considered less likely. 3. Moderate cardiomegaly and coronary artery calcification and mild dilatation of the ascending aorta. Dilatation of the central pulmonary arteries which suggests portal hypertension. 4. Right lower lobe bronchial wall thickening and secretions. Airborne isolation Supplemental oxygen as needed Started Heparin IV -> switched to lovenox subq therapeutic dose. Monitor for any signs of bleeding, will start warfarin , monitor INR Albuterol neb as needed Dexamethasone 6mg IV daily Incentive spirometry Cefepime, doxycycline Echo obtained Mild concentric LVH. There is a focal akinesis of the basal inferior segment consistent with chronic scar. LV wall motion is otherwise normal. LV systolic function is normal. LVEF 55 to 60%. Aortic valve sclerosis mild, without significant aortic valvular stenosis. There is mild mitral regurg. Grade 1 diastolic dysfunction CBC, BMP, INR daily Electrolyte abnormalities Hypomagnesemia, hypophosphatemia, hypokalemia -Replete an monitor (4) Restrictive airway disease: Plan: History asthma, restrictive airway disease, exertional hypoxia Awaiting outpatient oxygen for use with ambulation Follows with [facility] pulmonology Continue home inhaler Albuterol nebs prn Further treatment as above (5) AMS (altered mental status): (6) Alzheimer disease: Plan: Likely metabolic encephalopathy on chronic dementia CT head: No acute intracranial abnormality. Acute maxillary sinusitis. UA negative Monitor for delirium (7) Sinus tachycardia: Plan: Sinus tachycardia in ER Likely secondary to underlying illness with PE, COVID-19 Monitor on tele Now resolved (8) Elevated troponin: (9) LBBB (left bundle branch block): Plan: Initial high-sensitivity troponin: 18.6 EKG: Sinus tachycardia, LBBB, PVCs. Last EKG 2011 without LBBB Denies chest pain Possible demand ischemia secondary to hypoxia, PE, COVID-19 trended troponin Echo obtained - as above troponin 18 -> 15 (10) PVC (premature ventricular contraction): Plan: PVCs noted on EKG Started metoprolol tartrate 12.5mg BID (11) Hypercalcemia: Plan: Ca: 11 -> 10.4 (after IVF) ->11.2 Vitamin D, PTH, parathyroid related protein ordered Consulted and discussed w/ nephrology - initially received IVF , IV lasix, calcitonin Cause is somewhat unclear but could be volume depletion/ Mild Hyperparathyroidism given that PTH was not suppressed on admission. Now normal after IVF, Lasix and Calcitonin. Other causes of Hypercalcemia is pending at this time. No need of lasix and/or more calcitonin Current Ca 9.5 Cont. to closely monitor BMP AM ordered (12) Gout: Plan: Continue allopurinol DVT Prophylaxis - lovenox Full Code as per discussion with pt, and pt's family. Wants initial attempt but would not want prolonged life support if poor prognosis Follows with Dr Kaur for routine care Admission and Anticipated Discharge Date Admission Date: January 13, 2023 Subjective Pt seen in follow up of hypoxia, PE, + covid Currently laying in bed, in NAD One-on-one sitter currently present at the bedside, patient is resting Reports feeling well, and has no complaints Ate breakfast this AM Continues to use suppl. O2 No fevers chills chest pain shortness of breath, no abdominal pain nausea or vomiting Nephrology following for hypercalcemia Review of Systems Review of Systems: All systems reviewed & are unremarkable except as noted in Subjective Physical Exam Physical Exam: General: overweight elderly F in NAD on suppl. O2 Head: normocephalic, atraumatic Eyes: conjunctiva non-injected, anicteric ENT: normal inspection external ears, nose, mucous membranes moist Neck: supple Lungs: no respiratory distress on current 2L oxygen via NC, minimal rhonchi CV: RRR, + murmur, trace-1+ pretibial edema Abd: normal BS, soft, non-tender Ext: no calf tenderness, moves extremities Neuro: Alert, oriented to person, normal affect, speech fluent, no facial asymmetry, very hard of hearing, moves extremities Skin: warm, dry Results & Data Results & Data Vital Signs (Past 12 Hours) Vital Signs Temp Pulse Pulse Resp BP Pulse Ox Pulse Ox 01/17/23 03:36 36.8 C 69 16 135/81 93 01/16/23 22:00 70 01/16/23 23:55 01/16/23 23:23 36.9 C 77 16 130/77 92 01/16/23 22:00 92 O2 Del Method O2 Del Method O2 Flow Rate O2 Flow Rate 01/17/23 03:36 Nasal Cannula 2 01/16/23 22:00 01/16/23 23:55 Nasal Cannula 2 01/16/23 23:23 Nasal Cannula 2 01/16/23 22:00 Room Air 2 Laboratory Results 01/17/23 01/16/23 Range/Units 06:28 08:44 APTT 28.2 (21.0-31.0) Seconds PTT Ratio 1.0 Sodium 137 (136-145) mmol/L Potassium 4.2 D (3.5-5.1) mmol/L Chloride 101 (98-107) mmol/L Carbon Dioxide 32 (21-32) mmol/L Anion Gap 4 (3-11) BUN 16 (6-23) mg/dl Creatinine 0.53 L (0.6-1.2) mg/dl Est Cr Clr Drug Dosing 77.5 ml/min Est GFR ( Amer) 98.3 ml/min Est GFR (Non-Af Amer) 84.8 ml/min BUN/Creatinine Ratio 30.2 H (10-20) Glucose 76 (70-99(Fasting)) mg/dl Calcium 9.5 (8.6-10.3) mg/dl Phosphorus 2.0 L (2.5-4.9) mg/dl Magnesium 1.8 (1.7-2.4) mg/dl Medications Administered Current Inpatient Medications Acetaminophen (Acetaminophen 325 Mg Tab) 650 mg PO Q4H PRN PRN Reason: Pain or Fever Stop: 02/12/23 22:31 Last Admin: 01/17/23 05:29 Dose: 650 mg Albuterol (Albuterol 0.083% Nebu Soln 3 Ml Vial) 2.5 mg NEB Q6R PRN; Protocol PRN Reason: Shortness Of Breath Or Wheezing Stop: 02/12/23 22:31 Allopurinol (Allopurinol 100 Mg Tab) 100 mg PO DAILY [facility] Stop: 02/13/23 08:59 Last Admin: 01/16/23 08:25 Dose: 100 mg Calcitonin [place] (Calcitonin [place] 400 Units/2 Ml) 200 units SQ Q12H [facility] Stop: 02/14/23 09:29 Last Admin: 01/16/23 21:42 Dose: 200 units Doxycycline Hyclate (Doxycycline Hyclate 100 Mg Cap) 100 mg PO Q12H [facility] Stop: 01/20/23 23:59 Last Admin: 01/16/23 21:43 Dose: 100 mg Enoxaparin Sodium (Enoxaparin 80 Mg/0.8 Ml Syr) 80 mg SQ Q12H [facility] Stop: 02/14/23 19:59 Last Admin: 01/16/23 21:46 Dose: 80 mg Fluticasone/Vilanterol (Fluticasone/Vilanterol 200/25mcg 14 Puffs/Inhaler) 1 puffs INH DAILY [facility] Stop: 02/13/23 08:59 Last Admin: 01/16/23 09:07 Dose: Not Given Guaifenesin (Guaifenesin 600 Mg Tabcr) 600 mg PO Q12 [facility] Stop: 02/13/23 20:59 Last Admin: 01/16/23 21:45 Dose: 600 mg Dexamethasone 6 mg/ Syringe 1.5 mls @ 1 mls/min IV DAILY [facility] Stop: 01/23/23 22:31 Last Admin: 01/16/23 08:22 Dose: 1 mls/min Cefepime HCl 2,000 mg/ Syringe 20 mls @ 5 mls/min IV Q8 [facility]; Protocol Stop: 01/21/23 13:59 Last Admin: 01/17/23 05:29 Dose: 5 mls/min Sodium Chloride (Nss 1000ml) 1,000 mls @ 80 mls/hr IV .[id number] [facility] Stop: 02/14/23 09:29 Last Admin: 01/16/23 22:02 Dose: 80 mls/hr Magnesium Oxide (Magnesium Oxide 400 Mg Tab) 400 mg PO QAM [facility] Stop: 02/14/23 09:14 Last Admin: 01/16/23 08:25 Dose: 400 mg Melatonin (Melatonin 3 Mg Tab) 3 mg PO HS PRN PRN Reason: Sleep Stop: 02/13/23 00:46 Last Admin: 01/14/23 20:40 Dose: 3 mg Metoprolol Tartrate (Metoprolol Tartrate 25 Mg Tab) 12.5 mg PO BID [facility] Stop: 02/12/23 22:31 Last Admin: 01/16/23 21:43 Dose: 12.5 mg Polyethylene Glycol (Polyethylene (Miralax) 17 Gm Pack) 17 gm PO DAILY PRN PRN Reason: Constipation Stop: 02/12/23 22:31
[2023-01-17 07:57] LABS: BUN Creatinine Ratio 30.2 (10-20); Calcium 9.5 mg/dl (8.6-10.3); Creatinine Clr Calc Pharmacy 77.5 ml/min; Est GFR (African American) 98.3 ml/min; Est GFR (Non-African American) 84.8 ml/min; Magnesium 1.8 mg/dl (1.7-2.4); Potassium 4.2 mmol/L (3.5-5.1)
[2023-01-17] MEDS: SODIUM CHLORIDE 0.9% 1000ML 1,000 ML IV SCH (08:33)
[2023-01-17] MEDS: guaiFENesin 600 MG TABCR PO SCH ×2 (08:33→21:33)
[2023-01-17] MEDS: ENOXAPARIN 80 MG/0.8 ML SYR SQ SCH ×2 (08:33→21:32)
[2023-01-17] MEDS: METOPROLOL TARTRATE 25 MG TAB PO SCH ×2 (08:33→21:34)
[2023-01-17] MEDS: allopurinoL 100 MG TAB PO SCH (08:34)
[2023-01-17] MEDS: FLUTICASONE/VILANTEROL 200/25MCG 14 PUFFS/INHALER INH SCH (08:34)
[2023-01-17] MEDS: MAGNESIUM OXIDE 400 MG TAB PO SCH (08:34)
[2023-01-17] MEDS: DOXYCYCLINE HYCLATE 100 MG CAP PO SCH ×2 (08:34→21:34)
[2023-01-17] MEDS: dexAMETHasone 6 MG in SYRINGE 0 ML IV SCH (08:35)
[2023-01-17] MEDS: CALCITONIN SALMON 400 UNITS/2 ML SQ SCH (08:35)
[2023-01-17] MEDS ORDERED: POTASSIUM PHOS 3 MMOL/1 ML INFUSION IV STA (14:43)
--- NOTE | 2023-01-17 14:43 | Nephrology Progress Note ---
Date of Service January 17, 2023 Assessment & Plan Admission and Anticipated Discharge Date Admission Date: January 13, 2023 Subjective Subjective S--no new issues. making urine. Less o2 now. PHYSICAL EXAMINATION: GENERAL: Elderly white female who is not in any overt respiratory distress. She is awake and alert. HEENT: Mucous membranes are moist. NECK: Supple. No jugular venous distention. CHEST: Bilateral decreased breath sounds, occasional crackles. CARDIOVASCULAR: S1 and S2 regular. Soft systolic murmur heard. ABDOMEN: Soft, nontender. EXTREMITIES: Show no edema. LABORATORY TEST: Shows a WBC count is rising and is up to 21,000 today, hemoglobin was 16.5 on admission and is down to 15.7 now. PCO2 and the blood gas was 54, BUN 23, creatinine 0.6, sodium 139, potassium 4.2, chloride 105, bicarb 29, phosphorus 2.1, magnesium 1.7, calcium 11.2. Albumin on admission was 4. She had a CT chest angiogram, which shows multiple pulmonary embolism within the right lung. She also has some small right pleural effusion and possibility of underlying pulmonary infarct. Moderate cardiomegaly. Right bronchial thickening. ASSESSMENT AND PLAN: An 87-year-old female admitted with hypoxia and worsening shortness of breath with cough. Based on the imaging, it appears she has combination of pulmonary embolism as well as possible pneumonia in the right lung. I have been consulted for hypercalcemia. Hypercalcemia: Cause is somewhat unclear but could be volume depletion/ Mild Hyperparathyroidism given that PTH was not suppressed on admission. Ca now normal. will repeat PTH tomorrow again. Stop IVF, Lasix and Calcitonin. Other causes of Hypercalcemia is pending at this time. Phos still low so will give 30 mmol Will follow peripherally. Results & Data Vital Signs (Past 12 Hours) Vital Signs Temp Pulse Pulse Resp BP Pulse Ox O2 Del Method 01/17/23 12:05 37 C 65 18 150/78 H 90 Nasal Cannula 01/17/23 08:00 73 01/17/23 03:36 36.8 C 69 16 135/81 93 Nasal Cannula O2 Flow Rate 01/17/23 12:05 2 01/17/23 08:00 01/17/23 03:36 2
[2023-01-17] MEDS ORDERED: POTASSIUM PHOSPHATE 30 MMOL in SODIUM CHLORIDE 0.9% 500 ML IV ONE (15:00)
[2023-01-17] MEDS: WARFARIN SOD 3 MG TAB PO SCH (16:00)
[2023-01-18] MEDS: CEFEPIME 2,000 MG in SYRINGE 0 ML IV SCH ×3 (05:37→22:41)
--- NOTE | 2023-01-18 07:45 | Nephrology Progress Note ---
Date of Service January 18, 2023 Assessment & Plan (1) Hypercalcemia: Plan: 87-year-old female admitted with hypoxia and worsening shortness of breath with cough, Covid +. Based on the imaging, it appears she has combination of pulmonary embolism as well as possible pneumonia in the right lung. Nephro following for hypercalcemia Cause is somewhat unclear but could be volume depletion/ Mild Hyperparathyroidism given that PTH was not suppressed on admission, though PTH not even in upper ranges of normal Ca had normalized then worsened off of IVF, Lasix and Calcitonin. Other causes of Hypercalcemia remain pending at this time. >>>will give NS at 80 mL hourly for one liter >>increased mag frequency to bid -continue daily bmp, phos, mag check Admission and Anticipated Discharge Date Admission Date: January 13, 2023 Subjective has sitter; unable to give much ROS, some d/t comprehension, ? d/t hearing; does endorse thirst Review of Systems Review of Systems: All systems reviewed & are unremarkable except as noted in Subjective Physical Exam Constitutional: well developed, well nourished, + frail appearing and cooperative; no acute distress Eyes: EOM intact bilaterally ENMT: Ears: no external ear abnormality Nose: no external nose abnormality Mouth: + dry oral mucous membranes Neck: no nuchal rigidity Respiratory: normal respiratory effort Auscultation: + diminished lung sounds (, socorro R base) Gastrointestinal (Abdomen): Inspection/Auscultation: normal bowel sounds Percussion/Palpation: abdomen soft; abdomen nontender Musculoskeletal: Extremities: strength 5/5 throughout Skin: no rashes, warm and dry Neurologic: valero, fluent speech, no tremor Psychiatric: Orientation: alert and oriented to person Results & Data Vital Signs (Past 12 Hours) Vital Signs Temp Pulse Pulse Resp BP Pulse Ox O2 Del Method 01/18/23 06:59 36.5 C 68 20 123/62 91 Nasal Cannula 01/18/23 03:59 36.4 C L 63 18 155/78 H 92 Nasal Cannula 01/17/23 22:02 80 01/17/23 22:00 Nasal Cannula 01/17/23 22:09 36.3 C L 72 18 145/81 H 91 Nasal Cannula O2 Flow Rate 01/18/23 06:59 2 01/18/23 03:59 2 01/17/23 22:02 01/17/23 22:00 2 01/17/23 22:09 2 Laboratory Results 01/15/23 05:38 01/17/23 06:28 ca 10.4, phos 2.4, mag 1.6
[2023-01-18 08:21] LABS: BUN Creatinine Ratio 36.7 (10-20); Calcium 10.4 mg/dl (8.6-10.3); Creatinine Clr Calc Pharmacy 82.8 ml/min; Est GFR (African American) 100.8 ml/min; Magnesium 1.6 mg/dl (1.7-2.4); Phosphorus 2.4 mg/dl (2.5-4.9); Potassium 4.3 mmol/L (3.5-5.1)
[2023-01-18 08:34] LABS: INR 1.1 (0.9-1.1); Prothrombin Time 12.4 Seconds (9.0-12.0)
[2023-01-18] MEDS: ENOXAPARIN 80 MG/0.8 ML SYR SQ SCH ×2 (09:58→20:28)
[2023-01-18] MEDS: guaiFENesin 600 MG TABCR PO SCH ×2 (09:58→20:28)
[2023-01-18] MEDS: MAGNESIUM OXIDE 400 MG TAB PO SCH ×2 (09:59→20:29)
[2023-01-18] MEDS: allopurinoL 100 MG TAB PO SCH (09:59)
[2023-01-18] MEDS: METOPROLOL TARTRATE 25 MG TAB PO SCH ×2 (09:59→20:29)
[2023-01-18] MEDS: FLUTICASONE/VILANTEROL 200/25MCG 14 PUFFS/INHALER INH SCH (10:00)
[2023-01-18] MEDS: dexAMETHasone 6 MG in SYRINGE 0 ML IV SCH (10:52)
[2023-01-18] MEDS: DOXYCYCLINE HYCLATE 100 MG CAP PO SCH ×2 (10:52→22:41)
[2023-01-18 11:27] LABS: Albumin 3.2 g/dL (3.8-4.8); Alpha 1 Globulin 0.3 g/dL (0.2-0.3); Alpha 2 Globulin 0.8 g/dL (0.5-0.9); Beta-1-Globulin 0.3 g/dL (0.4-0.6); Beta-2-Globulin 0.5 g/dL (0.2-0.5); Monoclonal Protein Band 1 DNR g/dL (NONE DETECTED); Monoclonal Protein Band 2 DNR g/dL (NONE DETECTED); Monoclonal Protein Band 3 DNR g/dL (NONE DETECTED); Total Protein 6.1 g/dL (6.1-8.1)
[2023-01-18] MEDS ORDERED: SODIUM CHLORIDE 0.9% 1000ML 1,000 ML IV SCH (13:00)
[2023-01-18] MEDS: WARFARIN SOD 3 MG TAB PO SCH (16:19)
[2023-01-18] MEDS: POLYETHYLENE (MIRALAX) 17 GM PACK PO PRN (16:20)
--- NOTE | 2023-01-18 17:03 | Hospitalist Progress Note ---
Date of Service January 18, 2023 Assessment & Plan (1) Acute and chronic respiratory failure with hypoxia: (2) Pulmonary embolism: (3) COVID-19: Plan: Possible pneumonia Patient is 87-year-old female with PMH Alzheimer dementia, restrictive lung disease, asthma, exertional hypoxia, gout presented to ER for noted hypoxia of 85% in PCP clinic today. Chronic productive cough and chronic exertional SOB without reported increase. Denies fever/chills. No known COVID-19 exposure. Unclear In ER afebrile, P: 119, BP: 124/79, R: 22, 90% on 2L NC WBC: 15, lactate: 1.4, procalcitonin: 0.15. +COVID 19, negative influenza, RSV PCR. VBG: pH: 7.35, pCO2: 60, pO2: 60, HCO3: 33 CXR: Cardiomegaly without overt pulmonary edema. Mild bibasilar opacities which favor atelectasis. Possible trace bilateral pleural effusions. In ER given albuterol neb, Zithromax, cefepime, 125 mg Solu-Medrol IV CTA chest: 1. Several segmental and subsegmental pulmonary emboli within the right lung. 2. Small right pleural effusion. Adjacent airspace opacity favors atelectasis however an underlying pulmonary infarct would be difficult to exclude given pulmonary emboli. An infectious process is also within the differential but considered less likely. 3. Moderate cardiomegaly and coronary artery calcification and mild dilatation of the ascending aorta. Dilatation of the central pulmonary arteries which suggests portal hypertension. 4. Right lower lobe bronchial wall thickening and secretions. Airborne isolation Supplemental oxygen as needed Started Heparin IV -> switched to lovenox subq therapeutic dose. Monitor for any signs of bleeding, started warfarin , monitor INR Albuterol neb as needed Dexamethasone 6mg IV daily Incentive spirometry Cefepime, doxycycline Echo obtained Mild concentric LVH. There is a focal akinesis of the basal inferior segment consistent with chronic scar. LV wall motion is otherwise normal. LV systolic function is normal. LVEF 55 to 60%. Aortic valve sclerosis mild, without significant aortic valvular stenosis. There is mild mitral regurg. Grade 1 diastolic dysfunction CBC, BMP, INR daily Electrolyte abnormalities Hypomagnesemia, hypophosphatemia, hypokalemia -Replete an monitor (4) Restrictive airway disease: Plan: History asthma, restrictive airway disease, exertional hypoxia Awaiting outpatient oxygen for use with ambulation Follows with [facility] pulmonology Continue home inhaler Albuterol nebs prn Further treatment as above (5) AMS (altered mental status): (6) Alzheimer disease: Plan: Likely metabolic encephalopathy on chronic dementia CT head: No acute intracranial abnormality. Acute maxillary sinusitis. UA negative Monitor for delirium (7) Sinus tachycardia: Plan: Sinus tachycardia in ER Likely secondary to underlying illness with PE, COVID-19 Monitor on tele Now resolved (8) Elevated troponin: (9) LBBB (left bundle branch block): Plan: Initial high-sensitivity troponin: 18.6 EKG: Sinus tachycardia, LBBB, PVCs. Last EKG 2011 without LBBB Denies chest pain Possible demand ischemia secondary to hypoxia, PE, COVID-19 trended troponin Echo obtained - as above troponin 18 -> 15 (10) PVC (premature ventricular contraction): Plan: PVCs noted on EKG Started metoprolol tartrate 12.5mg BID (11) Hypercalcemia: Plan: Ca: 11 -> 10.4 (after IVF) ->11.2 Vitamin D, PTH, parathyroid related protein ordered Consulted and discussed w/ nephrology - initially received IVF , IV lasix, calcitonin Cause is somewhat unclear but could be volume depletion/ Mild Hyperparathyroidism given that PTH was not suppressed on admission. Other causes of Hypercalcemia is pending at this time. Ca up again without IVF, will give IVF, nephrology following Cont. to closely monitor BMP AM ordered (12) Gout: Plan: Continue allopurinol DVT Prophylaxis - lovenox Full Code as per discussion with pt, and pt's family. Wants initial attempt but would not want prolonged life support if poor prognosis Follows with Dr Kaur for routine care Admission and Anticipated Discharge Date Admission Date: January 13, 2023 Subjective Pt seen in follow up of hypoxia, PE, + covid Currently laying in bed, in NAD Patient is awake and resting, pt' s daughter present at the bedside Reports feeling well, and has no complaints Continues to use suppl. O2 No fevers chills chest pain shortness of breath, no abdominal pain nausea or vomiting Nephrology following for hypercalcemia, Ca up when off IVF Review of Systems Review of Systems: All systems reviewed & are unremarkable except as noted in Subjective Physical Exam Physical Exam: General: overweight elderly F in NAD on suppl. O2 Head: normocephalic, atraumatic Eyes: conjunctiva non-injected, anicteric ENT: normal inspection external ears, nose, mucous membranes moist Neck: supple Lungs: no respiratory distress on current 2L oxygen via NC, minimal rhonchi CV: RRR, + murmur, trace-1+ pretibial edema Abd: normal BS, soft, non-tender Ext: no calf tenderness, moves extremities Neuro: Alert, oriented to person, normal affect, speech fluent, no facial a symmetry, very hard of hearing, moves extremities Skin: warm, dry Results & Data Results & Data Vital Signs (Past 12 Hours) Vital Signs Temp Pulse Pulse Resp BP Pulse Ox O2 Del Method 01/18/23 14:20 65 01/18/23 06:01 68 01/18/23 14:47 36.6 C 68 20 133/82 90 Nasal Cannula 01/18/23 13:30 Nasal Cannula 01/18/23 11:02 36.3 C L 65 20 110/63 92 Nasal Cannula 01/18/23 06:59 36.5 C 68 20 123/62 91 Nasal Cannula O2 Flow Rate 01/18/23 14:20 01/18/23 06:01 01/18/23 14:47 2 01/18/23 13:30 2 01/18/23 11:02 2 01/18/23 06:59 2 Laboratory Results 01/18/23 01/18/23 01/18/23 Range/Units 07:36 07:36 07:36 PT 12.4 H (9.0-12.0) Seconds INR 1.1 (0.9-1.1) Sodium 137 (136-145) mmol/L Potassium 4.3 (3.5-5.1) mmol/L Chloride 102 (98-107) mmol/L Carbon Dioxide 31 (21-32) mmol/L Anion Gap 4 (3-11) BUN 18 (6-23) mg/dl Creatinine 0.49 L (0.6-1.2) mg/dl Est Cr Clr Drug Dosing 82.8 ml/min Est GFR ( Amer) 100.8 ml/min Est GFR (Non-Af Amer) 87.0 ml/min BUN/Creatinine Ratio 36.7 H (10-20) Glucose 88 (70-99(Fasting)) mg/dl Calcium 10.4 H (8.6-10.3) mg/dl Phosphorus 2.4 L (2.5-4.9) mg/dl Magnesium 1.6 L (1.7-2.4) mg/dl Total Protein (PEP) (6.1-8.1) g/dL Albumin (PEP) (3.8-4.8) g/dL Pjcem-7-Ogqjhcvvc (0.2-0.3) g/dL Ltloe-2-Rusaywfnc (0.5-0.9) g/dL Skxt-4-Hcouawvt (0.4-0.6) g/dL Sppf-9-Rbvblkqz (0.2-0.5) g/dL Gamma Globulins (0.8-1.7) g/dL Monoclonal Peak 3 (NONE DETECTED) g/dL Ser Monoclonl Protein (NONE DETECTED) g/dL Ser Monoclonal Prot 2 (NONE DETECTED) g/dL PEP Interpretation PTH Intact 68.0 (12.0-88.0) pg/ml 01/13/23 Range/Units 19:10 PT (9.0-12.0) Seconds INR (0.9-1.1) Sodium (136-145) mmol/L Potassium (3.5-5.1) mmol/L Chloride (98-107) mmol/L Carbon Dioxide (21-32) mmol/L Anion Gap (3-11) BUN (6-23) mg/dl Creatinine (0.6-1.2) mg/dl Est Cr Clr Drug Dosing ml/min Est GFR ( Amer) ml/min Est GFR (Non-Af Amer) ml/min BUN/Creatinine Ratio (10-20) Glucose (70-99(Fasting)) mg/dl Calcium (8.6-10.3) mg/dl Phosphorus (2.5-4.9) mg/dl Magnesium (1.7-2.4) mg/dl Total Protein (PEP) 6.1 (6.1-8.1) g/dL Albumin (PEP) 3.2 L (3.8-4.8) g/dL Dqted-1-Lrqhsopcl 0.3 (0.2-0.3) g/dL Twxli-2-Yipsiazar 0.8 (0.5-0.9) g/dL Ulxn-8-Hrekznvy 0.3 L (0.4-0.6) g/dL Jjsu-8-Fypkrxpg 0.5 (0.2-0.5) g/dL Gamma Globulins 1.0 (0.8-1.7) g/dL Monoclonal Peak 3 DNR (NONE DETECTED) g/dL Ser Monoclonl Protein DNR (NONE DETECTED) g/dL Ser Monoclonal Prot 2 DNR (NONE DETECTED) g/dL PEP Interpretation SEE NOTE PTH Intact (12.0-88.0) pg/ml Medications Administered Current Inpatient Medications Acetaminophen (Acetaminophen 325 Mg Tab) 650 mg PO Q4H PRN PRN Reason: Pain or Fever Stop: 02/12/23 22:31 Last Admin: 01/17/23 05:29 Dose: 650 mg Albuterol (Albuterol 0.083% Nebu Soln 3 Ml Vial) 2.5 mg NEB Q6R PRN; Protocol PRN Reason: Shortness Of Breath Or Wheezing Stop: 02/12/23 22:31 Allopurinol (Allopurinol 100 Mg Tab) 100 mg PO DAILY DANYA Stop: 02/13/23 08:59 Last Admin: 01/18/23 09:59 Dose: 100 mg Doxycycline Hyclate (Doxycycline Hyclate 100 Mg Cap) 100 mg PO Q12H [facility]ANY[facility] Stop: 01/20/23 23:59 Last Admin: 01/18/23 10:52 Dose: 100 mg Enoxaparin Sodium (Enoxaparin 80 Mg/0.8 Ml Syr) 80 mg SQ Q12H [facility]ANY[facility] Stop: 02/14/23 19:59 Last Admin: 01/18/23 09:58 Dose: 80 mg Fluticasone/Vilanterol (Fluticasone/Vilanterol 200/25mcg 14 Puffs/Inhaler) 1 puffs INH DAILY DANYA Stop: 02/13/23 08:59 Last Admin: 01/18/23 10:00 Dose: 1 puffs Guaifenesin (Guaifenesin 600 Mg Tabcr) 600 mg PO Q12 [facility] Stop: 02/13/23 20:59 Last Admin: 01/18/23 09:58 Dose: 600 mg Dexamethasone 6 mg/ Syringe 1.5 mls @ 1 mls/min IV DAILY [facility]ANY[facility] Stop: 01/23/23 22:31 Last Admin: 01/18/23 10:52 Dose: 1 mls/min Cefepime HCl 2,000 mg/ Syringe 20 mls @ 5 mls/min IV Q8 [facility]; Protocol Stop: 01/21/23 13:59 Last Admin: 01/18/23 14:08 Dose: 5 mls/min Sodium Chloride (Nss 1000ml) 1,000 mls @ 80 mls/hr IV .[id number] [facility] Stop: 01/19/23 01:29 Last Admin: 01/18/23 14:08 Dose: 80 mls/hr Magnesium Oxide (Magnesium Oxide 400 Mg Tab) 400 mg PO BID [facility] Stop: 02/17/23 20:59 Melatonin (Melatonin 3 Mg Tab) 3 mg PO HS PRN PRN Reason: Sleep Stop: 02/13/23 00:46 Last Admin: 01/14/23 20:40 Dose: 3 mg Metoprolol Tartrate (Metoprolol Tartrate 25 Mg Tab) 12.5 mg PO BID [facility] Stop: 02/12/23 22:31 Last Admin: 01/18/23 09:59 Dose: 12.5 mg Polyethylene Glycol (Polyethylene (Miralax) 17 Gm Pack) 17 gm PO DAILY PRN PRN Reason: Constipation Stop: 02/12/23 22:31 Last Admin: 01/18/23 16:20 Dose: 17 gm Warfarin Sodium (Warfarin Sod 3 Mg Tab) 3 mg PO DAILY@1600 [facility] Stop: 02/16/23 15:59 Last Admin: 01/18/23 16:19 Dose: 3 mg
[2023-01-19 02:22] LABS: Angiotensin Converting Enzyme 30 U/L (9-67); Vitamin D 1,25 55 pg/mL (18-72); Vitamin D3,1,25 55 pg/mL
[2023-01-19] MEDS: CEFEPIME 2,000 MG in SYRINGE 0 ML IV SCH ×3 (05:19→22:03)
--- NOTE | 2023-01-19 07:54 | Hospitalist Progress Note ---
Date of Service January 19, 2023 Assessment & Plan (1) Acute and chronic respiratory failure with hypoxia: (2) Pulmonary embolism: (3) COVID-19: Plan: Possible pneumonia Patient is 87-year-old female with PMH Alzheimer dementia, restrictive lung disease, asthma, exertional hypoxia, gout presented to ER for noted hypoxia of 85% in PCP clinic today. Chronic productive cough and chronic exertional SOB without reported increase. Denies fever/chills. No known COVID-19 exposure. Unclear In ER afebrile, P: 119, BP: 124/79, R: 22, 90% on 2L NC WBC: 15, lactate: 1.4, procalcitonin: 0.15. +COVID 19, negative influenza, RSV PCR. VBG: pH: 7.35, pCO2: 60, pO2: 60, HCO3: 33 CXR: Cardiomegaly without overt pulmonary edema. Mild bibasilar opacities which favor atelectasis. Possible trace bilateral pleural effusions. In ER given albuterol neb, Zithromax, cefepime, 125 mg Solu-Medrol IV CTA chest: 1. Several segmental and subsegmental pulmonary emboli within the right lung. 2. Small right pleural effusion. Adjacent airspace opacity favors atelectasis however an underlying pulmonary infarct would be difficult to exclude given pulmonary emboli. An infectious process is also within the differential but considered less likely. 3. Moderate cardiomegaly and coronary artery calcification and mild dilatation of the ascending aorta. Dilatation of the central pulmonary arteries which suggests portal hypertension. 4. Right lower lobe bronchial wall thickening and secretions. Airborne isolation Supplemental oxygen as needed Started Heparin IV -> switched to lovenox subq therapeutic dose. Monitor for any signs of bleeding, started warfarin , monitor INR Albuterol neb as needed Dexamethasone 6mg IV daily Incentive spirometry Cefepime, doxycycline Echo obtained Mild concentric LVH. There is a focal akinesis of the basal inferior segment consistent with chronic scar. LV wall motion is otherwise normal. LV systolic function is normal. LVEF 55 to 60%. Aortic valve sclerosis mild, without significant aortic valvular stenosis. There is mild mitral regurg. Grade 1 diastolic dysfunction CBC, BMP, INR daily Electrolyte abnormalities Hypomagnesemia, hypophosphatemia, hypokalemia -Replete an monitor (4) Restrictive airway disease: Plan: History asthma, restrictive airway disease, exertional hypoxia Awaiting outpatient oxygen for use with ambulation Follows with [facility] pulmonology Continue home inhaler Albuterol nebs prn Further treatment as above (5) AMS (altered mental status): (6) Alzheimer disease: Plan: Likely metabolic encephalopathy on chronic dementia CT head: No acute intracranial abnormality. Acute maxillary sinusitis. UA negative Currently at baseline Monitor for delirium (7) Sinus tachycardia: Plan: Sinus tachycardia in ER Likely secondary to underlying illness with PE, COVID-19 Monitor on tele Now resolved (8) Elevated troponin: (9) LBBB (left bundle branch block): Plan: Initial high-sensitivity troponin: 18.6 EKG: Sinus tachycardia, LBBB, PVCs. Last EKG 2011 without LBBB Denies chest pain Possible demand ischemia secondary to hypoxia, PE, COVID-19 trended troponin Echo obtained - as above troponin 18 -> 15 (10) PVC (premature ventricular contraction): Plan: PVCs noted on EKG Started metoprolol tartrate 12.5mg BID (11) Hypercalcemia: Plan: Ca: 11 -> 10.4 (after IVF) ->11.2 Vitamin D, PTH, parathyroid related protein ordered Consulted and discussed w/ nephrology - initially received IVF , IV lasix, calcitonin Cause is somewhat unclear but could be volume depletion/ Mild Hyperparathyroidism given that PTH was not suppressed on admission. Other causes of Hypercalcemia is pending at this time. Current Ca 10.3 Cont. to closely monitor BMP AM ordered (12) Gout: Plan: Continue allopurinol DVT Prophylaxis - lovenox Full Code as per discussion with pt, and pt's family. Wants initial attempt but would not want prolonged life support if poor prognosis Follows with Dr Kaur for routine care Admission and Anticipated Discharge Date Admission Date: January 13, 2023 Subjective Pt seen in follow up of hypoxia, PE, + covid Currently laying in bed, in NAD Patient is awake and sitting in the chair, watching TV Reports feeling well, and has no complaints Continues to use suppl. O2 No fevers chills chest pain shortness of breath, no abdominal pain nausea or vomiting Nephrology following for hypercalcemia Review of Systems Review of Systems: All systems reviewed & are unremarkable except as noted in Subjective Physical Exam Physical Exam: General: overweight elderly F in NAD on suppl. O2 Head: normocephalic, atraumatic Eyes: conjunctiva non-injected, anicteric ENT: normal inspection external ears, nose, mucous membranes moist Neck: supple Lungs: no respiratory distress on current 2L oxygen via NC, minimal rhonchi CV: RRR, + murmur, trace-1+ pretibial edema Abd: normal BS, soft, non-tender Ext: no calf tenderness, moves extremities Neuro: Alert, oriented to person, normal affect, speech fluent, no facial asymmetry, very hard of hearing, moves extremities Skin: warm, dry Results & Data Results & Data Vital Signs (Past 12 Hours) Vital Signs Temp Pulse Pulse Resp BP BP Pulse Ox 01/18/23 21:57 75 01/18/23 20:30 01/18/23 22:48 36.5 C 66 18 142/83 H 91 01/18/23 20:09 36.6 C 72 18 136/68 92 O2 Del Method O2 Flow Rate 01/18/23 21:57 01/18/23 20:30 Nasal Cannula 2 01/18/23 22:48 Nasal Cannula 2 01/18/23 20:09 Nasal Cannula 2 Laboratory Results 01/18/23 01/18/23 01/18/23 Range/Units 07:36 07:36 07:36 PT 12.4 H (9.0-12.0) Seconds INR 1.1 (0.9-1.1) Sodium 137 (136-145) mmol/L Potassium 4.3 (3.5-5.1) mmol/L Chloride 102 (98-107) mmol/L Carbon Dioxide 31 (21-32) mmol/L Anion Gap 4 (3-11) BUN 18 (6-23) mg/dl Creatinine 0.49 L (0.6-1.2) mg/dl Est Cr Clr Drug Dosing 82.8 ml/min Est GFR ( Amer) 100.8 ml/min Est GFR (Non-Af Amer) 87.0 ml/min BUN/Creatinine Ratio 36.7 H (10-20) Glucose 88 (70-99(Fasting)) mg/dl Calcium 10.4 H (8.6-10.3) mg/dl Phosphorus 2.4 L (2.5-4.9) mg/dl Magnesium 1.6 L (1.7-2.4) mg/dl Total Protein (PEP) (6.1-8.1) g/dL Albumin (PEP) (3.8-4.8) g/dL Rfidq-5-Eonvjxpfr (0.2-0.3) g/dL Fyxnk-6-Vrhyhcdgh (0.5-0.9) g/dL Ywuc-5-Kalcyyrj (0.4-0.6) g/dL Dbza-9-Oysjuttr (0.2-0.5) g/dL Gamma Globulins (0.8-1.7) g/dL Monoclonal Peak 3 (NONE DETECTED) g/dL Ser Monoclonl Protein (NONE DETECTED) g/dL Ser Monoclonal Prot 2 (NONE DETECTED) g/dL PEP Interpretation Angiotensin Convert Enz (9-67) U/L Vit D 1,25-Dihyd Total (18-72) pg/mL 1,25 Dihydroxy Vit D2 pg/mL 1,25 Dihydroxy Vit D3 pg/mL PTH Intact 68.0 (12.0-88.0) pg/ml 01/14/23 01/13/23 Range/Units 04:31 19:10 PT (9.0-12.0) Seconds INR (0.9-1.1) Sodium (136-145) mmol/L Potassium (3.5-5.1) mmol/L Chloride (98-107) mmol/L Carbon Dioxide (21-32) mmol/L Anion Gap (3-11) BUN (6-23) mg/dl Creatinine (0.6-1.2) mg/dl Est Cr Clr Drug Dosing ml/min Est GFR ( Amer) ml/min Est GFR (Non-Af Amer) ml/min BUN/Creatinine Ratio (10-20) Glucose (70-99(Fasting)) mg/dl Calcium (8.6-10.3) mg/dl Phosphorus (2.5-4.9) mg/dl Magnesium (1.7-2.4) mg/dl Total Protein (PEP) 6.1 (6.1-8.1) g/dL Albumin (PEP) 3.2 L (3.8-4.8) g/dL Wxrtz-2-Ahwlqnktl 0.3 (0.2-0.3) g/dL Pvmbl-2-Epytackha 0.8 (0.5-0.9) g/dL Hapt-2-Ofpnbedv 0.3 L (0.4-0.6) g/dL Wkco-1-Jtkhlpvr 0.5 (0.2-0.5) g/dL Gamma Globulins 1.0 (0.8-1.7) g/dL Monoclonal Peak 3 DNR (NONE DETECTED) g/dL Ser Monoclonl Protein DNR (NONE DETECTED) g/dL Ser Monoclonal Prot 2 DNR (NONE DETECTED) g/dL PEP Interpretation SEE NOTE Angiotensin Convert Enz 30 (9-67) U/L Vit D 1,25-Dihyd Total 55 (18-72) pg/mL 1,25 Dihydroxy Vit D2 <8 pg/mL 1,25 Dihydroxy Vit D3 55 pg/mL PTH Intact (12.0-88.0) pg/ml Medications Administered Current Inpatient Medications Acetaminophen (Acetaminophen 325 Mg Tab) 650 mg PO Q4H PRN PRN Reason: Pain or Fever Stop: 02/12/23 22:31 Last Admin: 01/17/23 05:29 Dose: 650 mg Albuterol (Albuterol 0.083% Nebu Soln 3 Ml Vial) 2.5 mg NEB Q6R PRN; Protocol PRN Reason: Shortness Of Breath Or Wheezing Stop: 02/12/23 22:31 Allopurinol (Allopurinol 100 Mg Tab) 100 mg PO DAILY [facility]ANY[facility] Stop: 02/13/23 08:59 Last Admin: 01/18/23 09:59 Dose: 100 mg Doxycycline Hyclate (Doxycycline Hyclate 100 Mg Cap) 100 mg PO Q12H [facility] Stop: 01/20/23 23:59 Last Admin: 01/18/23 22:41 Dose: 100 mg Enoxaparin Sodium (Enoxaparin 80 Mg/0.8 Ml Syr) 80 mg SQ Q12H [facility] Stop: 02/14/23 19:59 Last Admin: 01/18/23 20:28 Dose: 80 mg Fluticasone/Vilanterol (Fluticasone/Vilanterol 200/25mcg 14 Puffs/Inhaler) 1 puffs INH DAILY [facility]ANY[facility] Stop: 02/13/23 08:59 Last Admin: 01/18/23 10:00 Dose: 1 puffs Guaifenesin (Guaifenesin 600 Mg Tabcr) 600 mg PO Q12 [facility] Stop: 02/13/23 20:59 Last Admin: 01/18/23 20:28 Dose: 600 mg Dexamethasone 6 mg/ Syringe 1.5 mls @ 1 mls/min IV DAILY [facility] Stop: 01/23/23 22:31 Last Admin: 01/18/23 10:52 Dose: 1 mls/min Cefepime HCl 2,000 mg/ Syringe 20 mls @ 5 mls/min IV Q8 [facility]; Protocol Stop: 01/21/23 13:59 Last Admin: 01/19/23 05:19 Dose: 5 mls/min Magnesium Oxide (Magnesium Oxide 400 Mg Tab) 400 mg PO BID [facility] Stop: 02/17/23 20:59 Last Admin: 01/18/23 20:29 Dose: 400 mg Melatonin (Melatonin 3 Mg Tab) 3 mg PO HS PRN PRN Reason: Sleep Stop: 02/13/23 00:46 Last Admin: 01/14/23 20:40 Dose: 3 mg Metoprolol Tartrate (Metoprolol Tartrate 25 Mg Tab) 12.5 mg PO BID [facility] Stop: 02/12/23 22:31 Last Admin: 01/18/23 20:29 Dose: 12.5 mg Polyethylene Glycol (Polyethylene (Miralax) 17 Gm Pack) 17 gm PO DAILY PRN PRN Reason: Constipation Stop: 02/12/23 22:31 Last Admin: 01/18/23 16:20 Dose: 17 gm Warfarin Sodium (Warfarin Sod 3 Mg Tab) 3 mg PO DAILY@1600 [facility] Stop: 02/16/23 15:59 Last Admin: 01/18/23 16:19 Dose: 3 mg
[2023-01-19] MEDS: ENOXAPARIN 80 MG/0.8 ML SYR SQ SCH ×2 (08:16→22:03)
[2023-01-19] MEDS: METOPROLOL TARTRATE 25 MG TAB PO SCH ×2 (08:17→22:04)
[2023-01-19] MEDS: guaiFENesin 600 MG TABCR PO SCH ×2 (08:17→22:04)
[2023-01-19] MEDS: FLUTICASONE/VILANTEROL 200/25MCG 14 PUFFS/INHALER INH SCH (08:17)
[2023-01-19] MEDS: MAGNESIUM OXIDE 400 MG TAB PO SCH ×2 (08:17→22:03)
[2023-01-19] MEDS: dexAMETHasone 6 MG in SYRINGE 0 ML IV SCH (08:17)
[2023-01-19] MEDS: allopurinoL 100 MG TAB PO SCH (08:18)
[2023-01-19 08:36] LABS: BUN Creatinine Ratio 41.7 (10-20); Calcium 10.3 mg/dl (8.6-10.3); Creatinine Clr Calc Pharmacy 84.7 ml/min; Est GFR (African American) 101.5 ml/min; Est GFR (Non-African American) 87.6 ml/min; Magnesium 1.6 mg/dl (1.7-2.4); Phosphorus 2.5 mg/dl (2.5-4.9); Potassium 4.6 mmol/L (3.5-5.1)
[2023-01-19 08:48] LABS: INR 1.3 (0.9-1.1); Prothrombin Time 13.7 Seconds (9.0-12.0)
--- NOTE | 2023-01-19 09:06 | Nephrology Progress Note ---
Date of Service January 19, 2023 Assessment & Plan (1) Hypercalcemia: Plan: 87-year-old female admitted with hypoxia and worsening shortness of breath with cough, Covid +. Based on the imaging, it appears she has combination of pulmonary embolism as well as possible pneumonia in the right lung. Nephro following for hypercalcemia Frankly hypercalcemia attributed to volume depletion. it improves w/ IV fluids and recurs (so far this admission) when these are stopped. PTH was not suppressed on admission,or so high even as the upper ranges of normal Ca had normalized w/ IVF/lasix/calcitonin then worsened off of these therapies. Other causes of Hypercalcemia remain pending at this time. -no further IVF today >>continue increased mag frequency to bid -continue daily bmp, phos, mag check Admission and Anticipated Discharge Date Admission Date: January 13, 2023 Subjective seen on late am rounds; eating better; denies breathing issues or cough; denies heavy thirst or abdominal pain Review of Systems Review of Systems: All systems reviewed & are unremarkable except as noted in Subjective (ROS limited by pt [place] and slow to process) Physical Exam Constitutional: well developed, well nourished, + frail appearing and cooperative (sitting up in chair w/ half eaten midday meal before her); no acute distress Eyes: EOM intact bilaterally ENMT: Ears: no external ear abnormality Nose: no external nose abnormality Mouth: + dry oral mucous membranes Neck: no nuchal rigidity Respiratory: normal respiratory effort Auscultation: + diminished lung sounds Gastrointestinal (Abdomen): Inspection/Auscultation: normal bowel sounds Percussion/Palpation: abdomen soft; abdomen nontender Musculoskeletal: Extremities: strength 5/5 throughout Skin: no rashes, warm and dry Psychiatric: Orientation: alert and oriented to person Results & Data Vital Signs (Past 12 Hours) Vital Signs Temp Pulse Pulse Resp BP BP Pulse Ox 01/19/23 08:21 36.7 C 74 19 165/92 H 89 L 01/18/23 21:57 75 01/18/23 22:48 36.5 C 66 18 142/83 H 91 O2 Del Method O2 Flow Rate 01/19/23 08:21 Nasal Cannula 3 01/18/23 21:57 01/18/23 22:48 Nasal Cannula 2 Laboratory Results 01/15/23 05:38 01/19/23 08:02
[2023-01-19] MEDS: DOXYCYCLINE HYCLATE 100 MG CAP PO SCH ×2 (12:54→22:05)
[2023-01-19] MEDS: POLYETHYLENE (MIRALAX) 17 GM PACK PO PRN (12:54)
[2023-01-19] MEDS ORDERED: MAGNESIUM SULFATE / D5W 1 GM/100 ML BAG IV ONE (13:45)
[2023-01-19] MEDS: WARFARIN SOD 5 MG TAB PO SCH (17:39)
[2023-01-19] MEDS: ACETAMINOPHEN 325 MG TAB PO PRN (22:06)
[2023-01-19] MEDS: MELATONIN 3 MG TAB PO PRN (22:06)
[2023-01-20] MEDS: CEFEPIME 2,000 MG in SYRINGE 0 ML IV SCH ×3 (06:09→20:13)
[2023-01-20 08:02] LABS: BUN Creatinine Ratio 43.3 (10-20); Calcium 10.7 mg/dl (8.6-10.3); Creatinine Clr Calc Pharmacy 67.8 ml/min; Est GFR (African American) 94.3 ml/min; Est GFR (Non-African American) 81.4 ml/min; Potassium 4.7 mmol/L (3.5-5.1)
[2023-01-20] MEDS: guaiFENesin 600 MG TABCR PO SCH ×2 (08:08→20:12)
[2023-01-20] MEDS: ENOXAPARIN 80 MG/0.8 ML SYR SQ SCH ×2 (08:08→20:11)
[2023-01-20] MEDS: METOPROLOL TARTRATE 25 MG TAB PO SCH ×2 (08:09→20:12)
[2023-01-20] MEDS: MAGNESIUM OXIDE 400 MG TAB PO SCH ×2 (08:09→20:12)
[2023-01-20 08:10] LABS: INR 1.7 (0.9-1.1); Prothrombin Time 17.8 Seconds (9.0-12.0)
[2023-01-20] MEDS: allopurinoL 100 MG TAB PO SCH (08:10)
[2023-01-20] MEDS: FLUTICASONE/VILANTEROL 200/25MCG 14 PUFFS/INHALER INH SCH (08:10)
[2023-01-20] MEDS: dexAMETHasone 6 MG in SYRINGE 0 ML IV SCH (12:21)
[2023-01-20] MEDS: DOXYCYCLINE HYCLATE 100 MG CAP PO SCH ×2 (12:21→20:13)
--- NOTE | 2023-01-20 16:27 | Hospitalist Progress Note ---
Date of Service January 20, 2023 Assessment & Plan (1) Acute and chronic respiratory failure with hypoxia: (2) Pulmonary embolism: (3) COVID-19: Plan: Possible pneumonia Patient is 87-year-old female with PMH Alzheimer dementia, restrictive lung disease, asthma, exertional hypoxia, gout presented to ER for noted hypoxia of 85% in PCP clinic today. Chronic productive cough and chronic exertional SOB without reported increase. Denies fever/chills. No known COVID-19 exposure. Unclear In ER afebrile, P: 119, BP: 124/79, R: 22, 90% on 2L NC WBC: 15, lactate: 1.4, procalcitonin: 0.15. +COVID 19, negative influenza, RSV PCR. VBG: pH: 7.35, pCO2: 60, pO2: 60, HCO3: 33 CXR: Cardiomegaly without overt pulmonary edema. Mild bibasilar opacities which favor atelectasis. Possible trace bilateral pleural effusions. In ER given albuterol neb, Zithromax, cefepime, 125 mg Solu-Medrol IV CTA chest: 1. Several segmental and subsegmental pulmonary emboli within the right lung. 2. Small right pleural effusion. Adjacent airspace opacity favors atelectasis however an underlying pulmonary infarct would be difficult to exclude given pulmonary emboli. An infectious process is also within the differential but considered less likely. 3. Moderate cardiomegaly and coronary artery calcification and mild dilatation of the ascending aorta. Dilatation of the central pulmonary arteries which suggests portal hypertension. 4. Right lower lobe bronchial wall thickening and secretions. Airborne isolation Supplemental oxygen as needed Started Heparin IV -> switched to lovenox subq therapeutic dose. Monitor for any signs of bleeding, started warfarin , monitor INR INR still not therapeutic, cont. w/ warfarin dose 5 mg , cont. lovenox therap. dose Albuterol neb as needed Dexamethasone 6mg IV daily Incentive spirometry Cefepime, doxycycline Echo obtained Mild concentric LVH. There is a focal akinesis of the basal inferior segment consistent with chronic scar. LV wall motion is otherwise normal. LV systolic function is normal. LVEF 55 to 60%. Aortic valve sclerosis mild, without significant aortic valvular stenosis. There is mild mitral regurg. Grade 1 diastolic dysfunction CBC, BMP, INR daily Electrolyte abnormalities Hypomagnesemia, hypophosphatemia, hypokalemia -Replete an monitor (4) Restrictive airway disease: Plan: History asthma, restrictive airway disease, exertional hypoxia Awaiting outpatient oxygen for use with ambulation Follows with [facility] pulmonology Continue home inhaler Albuterol nebs prn Further treatment as above (5) AMS (altered mental status): (6) Alzheimer disease: Plan: Likely metabolic encephalopathy on chronic dementia CT head: No acute intracranial abnormality. Acute maxillary sinusitis. UA negative Currently at baseline Monitor for delirium (7) Sinus tachycardia: Plan: Sinus tachycardia in ER Likely secondary to underlying illness with PE, COVID-19 Monitor on tele Now resolved (8) Elevated troponin: (9) LBBB (left bundle branch block): Plan: Initial high-sensitivity troponin: 18.6 EKG: Sinus tachycardia, LBBB, PVCs. Last EKG 2011 without LBBB Denies chest pain Possible demand ischemia secondary to hypoxia, PE, COVID-19 trended troponin Echo obtained - as above troponin 18 -> 15 (10) PVC (premature ventricular contraction): Plan: PVCs noted on EKG Started metoprolol tartrate 12.5mg BID (11) Hypercalcemia: Plan: Ca: 11 -> 10.4 (after IVF) ->11.2 Vitamin D, PTH, parathyroid related protein ordered Consulted and discussed w/ nephrology - initially received IVF , IV lasix, calcitonin Cause is somewhat unclear but could be volume depletion/ Mild Hyperparathyroidism given that PTH was not suppressed on admission. Other causes of Hypercalcemia is pending at this time. Current Ca 10.7 Cont. to closely monitor BMP AM ordered (12) Gout: Plan: Continue allopurinol DVT Prophylaxis - lovenox Full Code as per discussion with pt, and pt's family. Wants initial attempt but would not want prolonged life support if poor prognosis Follows with Dr Kaur for routine care Dispo: plan to DC to [facility] on Wednesday Admission and Anticipated Discharge Date Admission Date: January 13, 2023 Subjective Pt seen in follow up of hypoxia, PE, + covid Currently laying in bed, in NAD Patient is awake, watching TV Reports feeling well, and has no complaints Continues to use suppl. O2 No fevers chills chest pain shortness of breath, no abdominal pain nausea or vomiting Nephrology following for hypercalcemia Plan to DC to [facility] on Wednesday Review of Systems Review of Systems: All systems reviewed & are unremarkable except as noted in Subjective Physical Exam Physical Exam: General: overweight elderly F in NAD on suppl. O2 Head: normocephalic, atraumatic Eyes: conjunctiva non-injected, anicteric ENT: normal inspection external ears, nose, mucous membranes moist Neck: supple Lungs: no respiratory distress, minimal rhonchi, on suppl. O2 CV: RRR, + murmur, trace-1+ pretibial edema Abd: normal BS, soft, non-tender Ext: no calf tenderness, moves extremities Neuro: Alert, oriented to person, normal affect, speech fluent, no facial asymmetry, very hard of hearing, moves extremities Skin: warm, dry Results & Data Results & Data Vital Signs (Past 12 Hours) Vital Signs Temp Pulse Pulse Resp BP Pulse Ox O2 Del Method 01/20/23 12:09 36.5 C 72 18 141/80 H 91 Nasal Cannula 01/20/23 11:44 71 01/20/23 08:20 Nasal Cannula 01/20/23 08:00 36.4 C L 64 18 150/85 H 94 Nasal Cannula O2 Flow Rate 01/20/23 12:09 3 01/20/23 11:44 01/20/23 08:20 3 01/20/23 08:00 3 Laboratory Results 01/20/23 01/20/23 Range/Units 07:08 07:08 PT 17.8 H (9.0-12.0) Seconds INR 1.7 H (0.9-1.1) Sodium 135 L (136-145) mmol/L Potassium 4.7 (3.5-5.1) mmol/L Chloride 101 (98-107) mmol/L Carbon Dioxide 31 (21-32) mmol/L Anion Gap 3 (3-11) BUN 26 H (6-23) mg/dl Creatinine 0.60 (0.6-1.2) mg/dl Est Cr Clr Drug Dosing 67.8 ml/min Est GFR ( Amer) 94.3 ml/min Est GFR (Non-Af Amer) 81.4 ml/min BUN/Creatinine Ratio 43.3 H (10-20) Glucose 88 (70-99(Fasting)) mg/dl Calcium 10.7 H (8.6-10.3) mg/dl Medications Administered Current Inpatient Medications Acetaminophen (Acetaminophen 325 Mg Tab) 650 mg PO Q4H PRN PRN Reason: Pain or Fever Stop: 02/12/23 22:31 Last Admin: 01/19/23 22:06 Dose: 650 mg Albuterol (Albuterol 0.083% Nebu Soln 3 Ml Vial) 2.5 mg NEB Q6R PRN; Protocol PRN Reason: Shortness Of Breath Or Wheezing Stop: 02/12/23 22:31 Allopurinol (Allopurinol 100 Mg Tab) 100 mg PO DAILY [facility] Stop: 02/13/23 08:59 Last Admin: 01/20/23 08:10 Dose: 100 mg Doxycycline Hyclate (Doxycycline Hyclate 100 Mg Cap) 100 mg PO Q12H [facility] Stop: 01/20/23 23:59 Last Admin: 01/20/23 12:21 Dose: 100 mg Enoxaparin Sodium (Enoxaparin 80 Mg/0.8 Ml Syr) 80 mg SQ Q12H [facility] Stop: 02/14/23 19:59 Last Admin: 01/20/23 08:08 Dose: 80 mg Fluticasone/Vilanterol (Fluticasone/Vilanterol 200/25mcg 14 Puffs/Inhaler) 1 puffs INH DAILY [facility] Stop: 02/13/23 08:59 Last Admin: 01/20/23 08:10 Dose: 1 puffs Guaifenesin (Guaifenesin 600 Mg Tabcr) 600 mg PO Q12 [facility] Stop: 02/13/23 20:59 Last Admin: 01/20/23 08:08 Dose: 600 mg Dexamethasone 6 mg/ Syringe 1.5 mls @ 1 mls/min IV DAILY [facility] Stop: 01/23/23 22:31 Last Admin: 01/20/23 12:21 Dose: 1 mls/min Cefepime HCl 2,000 mg/ Syringe 20 mls @ 5 mls/min IV Q8 [facility]; Protocol Stop: 01/21/23 13:59 Last Admin: 01/20/23 15:25 Dose: 5 mls/min Magnesium Oxide (Magnesium Oxide 400 Mg Tab) 400 mg PO BID [facility] Stop: 02/17/23 20:59 Last Admin: 01/20/23 08:09 Dose: 400 mg Melatonin (Melatonin 3 Mg Tab) 3 mg PO HS PRN PRN Reason: Sleep Stop: 02/13/23 00:46 Last Admin: 01/19/23 22:06 Dose: 3 mg Metoprolol Tartrate (Metoprolol Tartrate 25 Mg Tab) 12.5 mg PO BID [facility] Stop: 02/12/23 22:31 Last Admin: 01/20/23 08:09 Dose: 12.5 mg Polyethylene Glycol (Polyethylene (Miralax) 17 Gm Pack) 17 gm PO DAILY PRN PRN Reason: Constipation Stop: 02/12/23 22:31 Last Admin: 01/19/23 12:54 Dose: 17 gm Warfarin Sodium (Warfarin Sod 5 Mg Tab) 5 mg PO DAILY@1600 [facility] Stop: 02/18/23 15:59 Last Admin: 01/19/23 17:39 Dose: 5 mg
--- NOTE | 2023-01-20 17:57 | Nephrology Progress Note ---
Date of Service January 20, 2023 Assessment & Plan (1) Hypercalcemia: Plan: 87-year-old female admitted with hypoxia and worsening shortness of breath with cough, Covid +. Based on the imaging, it appears she has combination of pulmonary embolism as well as possible pneumonia in the right lung. Nephro following for hypercalcemia Frankly hypercalcemia attributed to volume depletion (though it can also cause volume depletion in a vicious cycle).. it improves w/ IV fluids and recurs (so far this admission) when these are stopped. PTH was not suppressed on admiss ion,or so high even as the upper ranges of normal Ca had normalized w/ IVF/lasix/calcitonin then worsened off of these therapies. Other causes of Hypercalcemia remain pending at this time. -no further IVF today >>continue increased mag frequency to bid -continue daily bmp, phos, mag check >>faint m spike on spep >> ordered B2 microglobulin and immunofixation for am Admission and Anticipated Discharge Date Admission Date: January 13, 2023 Subjective denies pain or sob or nausea; eating slowly; no voinding c/o Review of Systems Review of Systems: All systems reviewed & are unremarkable except as noted in Subjective Physical Exam Constitutional: well developed, well nourished, + frail appearing and cooperative; no acute distress Eyes: EOM intact bilaterally ENMT: Ears: no external ear abnormality Nose: no external nose abnormality Mouth: + dry oral mucous membranes Neck: no nuchal rigidity Respiratory: normal respiratory effort Auscultation: + diminished lung sounds Cardiovascular: Rate/Rhythm: regular rate and regular rhythm Extremities: no edema Gastrointestinal (Abdomen): Inspection/Auscultation: normal bowel sounds Percussion/Palpation: abdomen soft; abdomen nontender Musculoskeletal: Extremities: strength 5/5 throughout Skin: no rashes, warm and dry Psychiatric: Orientation: alert and oriented to person Results & Data Vital Signs (Past 12 Hours) Vital Signs Temp Pulse Pulse Resp BP Pulse Ox O2 Del Method 01/20/23 12:09 36.5 C 72 18 141/80 H 91 Nasal Cannula 01/20/23 11:44 71 01/20/23 08:20 Nasal Cannula 01/20/23 08:00 36.4 C L 64 18 150/85 H 94 Nasal Cannula O2 Flow Rate 01/20/23 12:09 3 01/20/23 11:44 01/20/23 08:20 3 05/03/23 08:00 3 Laboratory Results 01/15/23 05:38 01/20/23 07:08
[2023-01-20] MEDS: WARFARIN SOD 5 MG TAB PO SCH (18:24)
[2023-01-20] MEDS: MELATONIN 3 MG TAB PO PRN (20:13)
[2023-01-21] MEDS: CEFEPIME 2,000 MG in SYRINGE 0 ML IV SCH (06:17)
[2023-01-21 08:47] LABS: BUN Creatinine Ratio 51.6 (10-20); Calcium 11.4 mg/dl (8.6-10.3); Creatinine Clr Calc Pharmacy 63.2 ml/min; Est GFR (African American) 92.3 ml/min; Est GFR (Non-African American) 79.7 ml/min; Potassium 4.9 mmol/L (3.5-5.1)
[2023-01-21] MEDS: MAGNESIUM OXIDE 400 MG TAB PO SCH ×2 (09:01→21:44)
[2023-01-21] MEDS: ENOXAPARIN 80 MG/0.8 ML SYR SQ SCH ×2 (09:01→21:44)
[2023-01-21] MEDS: METOPROLOL TARTRATE 25 MG TAB PO SCH ×2 (09:02→21:43)
[2023-01-21] MEDS: guaiFENesin 600 MG TABCR PO SCH ×2 (09:02→21:43)
[2023-01-21] MEDS: allopurinoL 100 MG TAB PO SCH (09:02)
[2023-01-21 09:03] LABS: INR 2.2 (0.9-1.1); Prothrombin Time 22.7 Seconds (9.0-12.0)
[2023-01-21] MEDS: FLUTICASONE/VILANTEROL 200/25MCG 14 PUFFS/INHALER INH SCH (09:03)
[2023-01-21] MEDS: dexAMETHasone 6 MG in SYRINGE 0 ML IV SCH (09:03)
--- NOTE | 2023-01-21 09:17 | Hospitalist Progress Note ---
Date of Service January 21, 2023 Assessment & Plan (1) Acute and chronic respiratory failure with hypoxia: Plan: multifactorial incuding PE and covid pneumonia. Cont treatments as outlined below. (2) Pulmonary embolism: Plan: INR therapeutic on warfarin Cont Lovenox one more day trend INR in am. Cont treatment for at least 3 months. VTE likley provoked in setting of covid illness. (3) Pneumonia due to COVID-19 virus: Plan: Decadron likely contributing to confusion. Will stop this now. Cont supportive care efforts and oxygen supplementation as needed Currently requiring 3lpm oxygenating 92% Cont Airborne isolation Cefepime, doxycycline have been given, Will continue one additional day, repeat procalcitonin and if she is clinically improved, may consider stopping antibiotics. Echo obtained Mild concentric LVH. There is a focal akinesis of the basal inferior segment consistent with chronic scar. LV wall motion is otherwise normal. LV systolic function is normal. LVEF 55 to 60%. Aortic valve sclerosis mild, without significant aortic valvular stenosis. There is mild mitral regurg. Grade 1 diastolic dysfunction CBC, BMP, INR daily (4) Hypercalcemia: Plan: Consulted and discussed w/ nephrology - initially received IVF , IV lasix, calcitonin etiologies include but not limited to volume depletion vs malignancy Cont management per nephrology. (5) AMS (altered mental status): Plan: Likely related to hospital delirium and may also be related to steroid side effect. Calcium also trending up which may be playing a role in her confusion today. Cont good day night cycles and hold further Decadron at this time. (6) Restrictive airway disease: Plan: History asthma, restrictive airway disease, exertional hypoxia Follows with [facility] pulmonology Continue home inhaler Albuterol nebs prn Further treatment as above (7) Alzheimer disease: Plan: Underlying dementia puts her at higher risk for inpatient delirium CT head: No acute intracranial abnormality. Acute maxillary sinusitis. UA negative Cont supportive care. (8) Elevated troponin: Plan: Likely related to demand ischemia. Echo with no acute wall motion abnormalities No symptoms of ACS at this time. (9) LBBB (left bundle branch block): Plan: Initial high-sensitivity troponin: 18.6 EKG: Sinus tachycardia, LBBB, PVCs. Last EKG 2011 without LBBB (10) PVC (premature ventricular contraction): Plan: PVCs noted on EKG Started metoprolol tartrate 12.5mg BID (11) Gout: Plan: chronic, stable. Continue allopurinol DVT Prophylaxis - lovenox Full Code --Wants initial attempt but would not want prolonged life support if poor prognosis Follows with Dr Kaur for routine care Dispo: plan to DC to [facility] on Wednesday pending resolution of current confusion and hypercalcemia. Eloisa Araiza DO [facility] Hospitalist Admission and Anticipated Discharge Date Admission Date: January 13, 2023 Subjective 87 yo F admitted for hypoxia 2/2 PE, covid pneumonia and hypercalcemia. calcium again increased to 11.4 this am. Nephro following she is very confused, although alert eating food without issue reporting thirst which goes along with her elevated calcium denies issues with breathing, but this was an unreliable answer Review of Systems Review of Systems: ROS was very difficult 2/2 delirium Physical Exam Physical Exam: CONSTITUTIONAL: WNWD, vitals as above, generally well-appearing, NAD EYES: normal conjunctivae, no scleral icterus ENT: external ear and nose normal, NECK: trachea midline, RESPIRATORY: clear to auscultation bilaterally, no crackles, rales or wheezes, normal respiratory effort CARDIOVASCULAR: regular rate and rhythm, S1 and 2 heard without murmurs, gallops or rubs, no JVD, no peripheral edema, CHEST: inspection of chest was normal GASTROINTESTINAL: soft, nontender, ND, no guarding MUSCULOSKELETAL: generalized weakness, cannot situp independently in bed, head is normocephalic and atraumatic SKIN: warm and dry NEUROLOGIC: CN 2-12 grossly intact, no sensory deficit, normal cognition, normal speech, no tremor PSYCHIATRIC: alert, confused. Results & Data Results & Data Vital Signs (Past 12 Hours) Vital Signs Temp Pulse Pulse Resp BP BP Pulse Ox 01/21/23 07:45 88 01/21/23 07:41 01/21/23 07:35 36.8 C 95 H 20 152/90 H 92 01/21/23 00:00 89 01/21/23 04:00 36.5 C 86 18 152/84 H 93 01/20/23 23:00 36.5 C 78 18 132/85 94 O2 Del Method O2 Flow Rate 01/21/23 07:45 01/21/23 07:41 Nasal Cannula 3 01/21/23 07:35 Nasal Cannula 3 01/21/23 00:00 01/21/23 04:00 Nasal Cannula 4 01/20/23 23:00 Nasal Cannula 4 Laboratory Results BMP 01/21/23 07:38 Sodium 134 L Potassium 4.9 Chloride 100 Carbon Dioxide 28 BUN 33 H Creatinine 0.64 Glucose 87 Calcium 11.4 H Medications Administered Current Inpatient Medications Acetaminophen (Acetaminophen 325 Mg Tab) 650 mg PO Q4H PRN PRN Reason: Pain or Fever Stop: 02/12/23 22:31 Last Admin: 01/19/23 22:06 Dose: 650 mg Albuterol (Albuterol 0.083% Nebu Soln 3 Ml Vial) 2.5 mg NEB Q6R PRN; Protocol PRN Reason: Shortness Of Breath Or Wheezing Stop: 02/12/23 22:31 Allopurinol (Allopurinol 100 Mg Tab) 100 mg PO DAILY [facility] Stop: 02/13/23 08:59 Last Admin: 01/21/23 09:02 Dose: 100 mg Enoxaparin Sodium (Enoxaparin 80 Mg/0.8 Ml Syr) 80 mg SQ Q12H [facility] Stop: 02/14/23 19:59 Last Admin: 01/21/23 09:01 Dose: 80 mg Fluticasone/Vilanterol (Fluticasone/Vilanterol 200/25mcg 14 Puffs/Inhaler) 1 puffs INH DAILY [facility] Stop: 02/13/23 08:59 Last Admin: 01/21/23 09:03 Dose: 1 puffs Guaifenesin (Guaifenesin 600 Mg Tabcr) 600 mg PO Q12 [facility] Stop: 02/13/23 20:59 Last Admin: 01/21/23 09:02 Dose: 600 mg Dexamethasone 6 mg/ Syringe 1.5 mls @ 1 mls/min IV DAILY [facility] Stop: 01/23/23 22:31 Last Admin: 01/21/23 09:03 Dose: 1 mls/min Cefepime HCl 2,000 mg/ Syringe 20 mls @ 5 mls/min IV Q8 [facility]; Protocol Stop: 01/21/23 13:59 Last Admin: 01/21/23 06:17 Dose: 5 mls/min Magnesium Oxide (Magnesium Oxide 400 Mg Tab) 400 mg PO BID [facility] Stop: 02/17/23 20:59 Last Admin: 01/21/23 09:01 Dose: 400 mg Melatonin (Melatonin 3 Mg Tab) 3 mg PO HS PRN PRN Reason: Sleep Stop: 02/13/23 00:46 Last Admin: 01/20/23 20:13 Dose: 3 mg Metoprolol Tartrate (Metoprolol Tartrate 25 Mg Tab) 12.5 mg PO BID [facility] Stop: 02/12/23 22:31 Last Admin: 01/21/23 09:02 Dose: 12.5 mg Polyethylene Glycol (Polyethylene (Miralax) 17 Gm Pack) 17 gm PO DAILY PRN PRN Reason: Constipation Stop: 02/12/23 22:31 Last Admin: 01/19/23 12:54 Dose: 17 gm Warfarin Sodium (Warfarin Sod 5 Mg Tab) 5 mg PO DAILY@1600 [facility] Stop: 02/18/23 15:59 Last Admin: 01/20/23 18:24 Dose: 5 mg
--- NOTE | 2023-01-21 10:17 | Nephrology Progress Note ---
Date of Service January 21, 2023 Assessment & Plan (1) Hypercalcemia: Plan: 87-year-old female admitted with hypoxia and worsening shortness of breath with cough, Covid +. Based on the imaging, it appears she has combination of pulmonary embolism as well as possible pneumonia in the right lung. Nephro following for hypercalcemia Frankly hypercalcemia attributed to volume depletion (though it can also cause volume depletion in a vicious cycle) w/ advanced dementia and poor po intake.. it improves w/ IV fluids and recurs (so far this admission) when these are sto pped. PTH was not suppressed on admission,or so high even as the upper ranges of normal Ca had normalized w/ IVF/lasix/calcitonin then worsened off of these therapies. Other causes of Hypercalcemia remain pending at this time. ->>consider NS plus half dose of a bisphosphonate; will d/w pharmacy >>continue increased mag frequency to bid -continue daily bmp, phos, mag check >>faint m spike on spep >> ordered B2 microglobulin and immunofixation which will take several days to come back; will also cycle back and make sure all appropriate labs are in Admission and Anticipated Discharge Date Admission Date: January 13, 2023 Subjective ca climbing again; reference labs pending; pt tearful, confused today; denies sob, denies n/v Review of Systems Review of Systems: Unobtainable due to cognitive status Physical Exam Constitutional: well developed, well nourished, + frail appearing and cooperative; no acute distress Eyes: EOM intact bilaterally ENMT: Ears: no external ear abnormality Nose: no external nose abnormality Mouth: + dry oral mucous membranes Neck: no nuchal rigidity Respiratory: normal respiratory effort Auscultation: + diminished lung sounds Cardiovascular: Rate/Rhythm: regular rate and regular rhythm Extremities: no edema Gastrointestinal (Abdomen): Inspection/Auscultation: normal bowel sounds Percussion/Palpation: abdomen soft; abdomen nontender Musculoskeletal: Extremities: strength 5/5 throughout Skin: no rashes, warm and dry Psychiatric: Orientation: alert and oriented to person Results & Data Vital Signs (Past 12 Hours) Vital Signs Temp Pulse Pulse Resp BP BP Pulse Ox 01/21/23 07:45 88 01/21/23 07:41 01/21/23 07:35 36.8 C 95 H 20 152/90 H 92 01/21/23 00:00 89 01/21/23 04:00 36.5 C 86 18 152/84 H 93 01/20/23 23:00 36.5 C 78 18 132/85 94 O2 Del Method O2 Flow Rate 01/21/23 07:45 01/21/23 07:41 Nasal Cannula 3 01/21/23 07:35 Nasal Cannula 3 01/21/23 00:00 01/21/23 04:00 Nasal Cannula 4 01/20/23 23:00 Nasal Cannula 4 Laboratory Results 01/15/23 05:38 01/21/23 07:38
[2023-01-21] MEDS: WARFARIN SOD 5 MG TAB PO SCH (15:58)
[2023-01-21] MEDS ORDERED: ZOLEDRONIC ACID IV ONE (20:00)
[2023-01-21] MEDS ORDERED: SODIUM CHLORIDE 0.9% IV ONE (20:00)
[2023-01-21] MEDS: MELATONIN 3 MG TAB PO PRN (21:45)
[2023-01-21] MEDS: ACETAMINOPHEN 325 MG TAB PO PRN (21:45)
[2023-01-22] MEDS: SODIUM CHLORIDE 0.9% 1000ML 1,000 ML IV SCH ×2 (00:14→13:04)
[2023-01-22 07:25] LABS: INR 2.9 (0.9-1.1); Prothrombin Time 29.5 Seconds (9.0-12.0)
[2023-01-22] MEDS: guaiFENesin 600 MG TABCR PO SCH ×2 (08:13→22:11)
[2023-01-22] MEDS: allopurinoL 100 MG TAB PO SCH (08:14)
[2023-01-22] MEDS: MAGNESIUM OXIDE 400 MG TAB PO SCH ×2 (08:14→22:11)
[2023-01-22] MEDS: METOPROLOL TARTRATE 25 MG TAB PO SCH ×2 (08:14→22:11)
[2023-01-22] MEDS: FLUTICASONE/VILANTEROL 200/25MCG 14 PUFFS/INHALER INH SCH (08:15)
[2023-01-22 08:29] LABS: Calcium 10.9 mg/dl (8.6-10.3); Potassium 4.5 mmol/L (3.5-5.1)
[2023-01-22 08:35] LABS: Creatinine Clr Calc Pharmacy 60.2 ml/min; Est GFR (African American) 90.5 ml/min; Est GFR (Non-African American) 78.1 ml/min
[2023-01-22] MEDS: WARFARIN SOD 5 MG TAB PO SCH (16:07)
--- NOTE | 2023-01-22 17:27 | Hospitalist Progress Note ---
Date of Service January 22, 2023 Assessment & Plan (1) Acute and chronic respiratory failure with hypoxia: Plan: multifactorial incuding PE and covid pneumonia. Cont treatments as outlined below. (2) Pulmonary embolism: Plan: INR therapeutic on warfarin CLovenox was stopped. trend INR in am. Cont treatment for at least 3 months. VTE likely provoked in setting of covid illness. (3) Pneumonia due to COVID-19 virus: Plan: Decadron likely contributing to confusion, so this was stopped on 01/21 Cont supportive care efforts and oxygen supplementation as needed Currently requiring 4lpm oxygenating 95% Cont Airborne isolation Cefepime, doxycycline have been given, however, there is no significant pneumonia on chest CT and procal is negative. She is afebrile. Ongoing hypoxia likely 2/2 PE +/- pulmonary infarction. Cont supportive care. Mild concentric LVH. There is a focal akinesis of the basal inferior segment consistent with chronic scar. LV wall motion is otherwise normal. LV systolic function is normal. LVEF 55 to 60%. Aortic valve sclerosis mild, without significant aortic valvular stenosis. There is mild mitral regurg. Grade 1 diastolic dysfunction CBC, BMP, INR daily (4) Delirium: Plan: Ongoing delirium, multifactorial. cont current treatments and ongoing supportive care. (5) Hypercalcemia: Plan: Consulted and discussed w/ nephrology - initially received IVF , IV lasix, calcitonin etiologies include but not limited to volume depletion vs malignancy Therapies were not continued and her calcium jed to 11.4 again. IVF restarted with poor PO intake and bisphosphonate was given on 01/21 Ca trending down and not the cause of her current delirium. (6) Restrictive airway disease: Plan: History asthma, restrictive airway disease, exertional hypoxia Follows with [facility] pulmonology Continue home inhaler Albuterol nebs prn Further treatment as above (7) Alzheimer disease: Plan: Underlying dementia puts her at higher risk for inpatient delirium CT head: No acute intracranial abnormality. Acute maxillary sinusitis. UA negative Cont supportive care. (8) Elevated troponin: Plan: Likely related to demand ischemia. Echo with no acute wall motion abnormalities No symptoms of ACS at this time. (9) LBBB (left bundle branch block): Plan: Initial high-sensitivity troponin: 18.6 EKG: Sinus tachycardia, LBBB, PVCs. Last EKG 2011 without LBBB (10) PVC (premature ventricular contraction): Plan: PVCs noted on EKG Started metoprolol tartrate 12.5mg BID (11) Gout: Plan: chronic, stable. Continue allopurinol DVT Prophylaxis - lovenox Full Code --Wants initial attempt but would not want prolonged life support if poor prognosis Follows with Dr Kaur for routine care Dispo: plan to DC to [facility] [place] on Wednesday pending resolution of current confusion and hypercalcemia. Eloisa Araiza DO [facility] Hospitalist Admission and Anticipated Discharge Date Admission Date: January 13, 2023 Subjective 87 yo F admitted for hypoxia 2/2 PE, covid pneumonia and hypercalcemia. Calcium improved to 10.9 after bisphosphonate administration last night and IV fluids Today she is very confused and delirious. She had a long nap this afternoon. She is tolerating food. Review of Systems Review of Systems: Unable to obtain ROS secondary to delirium Physical Exam 2 Physical Exam: CONSTITUTIONAL: WNWD, vitals as above, generally well-appearing, NAD but delirium is present. EYES: normal conjunctivae, no scleral icterus ENT: external ear and nose normal, NECK: trachea midline, RESPIRATORY: clear to auscultation bilaterally, no crackles, rales or wheezes, normal respiratory effort, supplemental oxygen was in her lap and 89% on pulse ox noted. She allowed me to reapply her nasal canula. CARDIOVASCULAR: regular rate and rhythm, S1 and 2 heard without murmurs, gallops or rubs, no JVD, no peripheral edema, CHEST: inspection of chest was normal GASTROINTESTINAL: soft, nontender, ND, no guarding MUSCULOSKELETAL: generalized weakness, cannot sit up independently in bed, head is normocephalic and atraumatic SKIN: warm and dry NEUROLOGIC: CN 2-12 grossly intact, no sensory deficit, normal cognition, normal speech, no tremor PSYCHIATRIC: alert, confused. Results & Data Results & Data Vital Signs (Past 12 Hours) Vital Signs Temp Pulse Pulse Resp BP Pulse Ox O2 Del Method 01/22/23 11:31 36.5 C 89 20 118/73 95 Nasal Cannula 01/22/23 07:30 78 01/22/23 09:00 Nasal Cannula 01/22/23 08:13 36.7 C 90 20 178/98 H 91 Nasal Cannula O2 Flow Rate 01/22/23 11:31 4 01/22/23 07:30 01/22/23 09:00 4 01/22/23 08:13 4 Laboratory Results BMP 01/22/23 06:24 Sodium 135 L Potassium 4.5 Chloride 103 Carbon Dioxide 25 BUN 34 H Creatinine 0.68 Glucose 86 Calcium 10.9 H Medications Administered Current Inpatient Medications Acetaminophen (Acetaminophen 325 Mg Tab) 650 mg PO Q4H PRN PRN Reason: Pain or Fever Stop: 02/12/23 22:31 Last Admin: 01/21/23 21:45 Dose: 650 mg Albuterol (Albuterol 0.083% Nebu Soln 3 Ml Vial) 2.5 mg NEB Q6R PRN; Protocol PRN Reason: Shortness Of Breath Or Wheezing Stop: 02/12/23 22:31 Allopurinol (Allopurinol 100 Mg Tab) 100 mg PO DAILY DANYA Stop: 02/13/23 08:59 Last Admin: 01/22/23 08:14 Dose: 100 mg Fluticasone/Vilanterol (Fluticasone/Vilanterol 200/25mcg 14 Puffs/Inhaler) 1 puffs INH DAILY DANYA Stop: 02/13/23 08:59 Last Admin: 01/22/23 08:15 Dose: 1 puffs Guaifenesin (Guaifenesin 600 Mg Tabcr) 600 mg PO Q12 DANYA Stop: 02/13/23 20:59 Last Admin: 01/22/23 08:13 Dose: 600 mg Sodium Chloride (Nss 1000ml) 1,000 mls @ 80 mls/hr IV .[id number] DANYA Stop: 02/20/23 22:29 Last Admin: 01/22/23 13:04 Dose: 80 mls/hr Magnesium Oxide (Magnesium Oxide 400 Mg Tab) 400 mg PO BID DANYA Stop: 02/17/23 20:59 Last Admin: 01/22/23 08:14 Dose: 400 mg Melatonin (Melatonin 3 Mg Tab) 3 mg PO HS PRN PRN Reason: Sleep Stop: 02/13/23 00:46 Last Admin: 01/21/23 21:45 Dose: 3 mg Metoprolol Tartrate (Metoprolol Tartrate 25 Mg Tab) 12.5 mg PO BID DANYA Stop: 02/12/23 22:31 Last Admin: 01/22/23 08:14 Dose: 12.5 mg Polyethylene Glycol (Polyethylene (Miralax) 17 Gm Pack) 17 gm PO DAILY PRN PRN Reason: Constipation Stop: 02/12/23 22:31 Last Admin: 01/19/23 12:54 Dose: 17 gm Warfarin Sodium (Warfarin Sod 5 Mg Tab) 5 mg PO DAILY@1600 DANYA Stop: 02/18/23 15:59 Last Admin: 01/22/23 16:07 Dose: 5 mg
[2023-01-23] MEDS: SODIUM CHLORIDE 0.9% 1000ML 1,000 ML IV SCH (02:04)
[2023-01-23 07:46] LABS: Hematocrit (blood only) 45.2 % (37.0-47.0); Mean Corpuscular Hemoglobin 31.1 pg (25.0-34.0); Mean Corpuscular Hgb Conc 33.2 g/dL (32.0-36.0); Mean Corpuscular Volume 93.8 fL (80.0-100.0); Platelet Count 184 K/uL (130-400); RDW Coefficient of Variation 13.4 % (11.5-14.5); RDW Standard Deviation 45.8 fL (36.4-46.3); Red Blood Count 4.82 M/uL (4.20-5.40); White Blood Count 7.61 K/ul (4.8-10.8)
[2023-01-23 08:02] LABS: BUN Creatinine Ratio 44.2 (10-20); Calcium 9.1 mg/dl (8.6-10.3); Creatinine Clr Calc Pharmacy 78.7 ml/min; Est GFR (African American) 98.9 ml/min; Est GFR (Non-African American) 85.3 ml/min; Magnesium 1.8 mg/dl (1.7-2.4); Phosphorus 2.2 mg/dl (2.5-4.9); Potassium 4.5 mmol/L (3.5-5.1)
[2023-01-23 08:16] LABS: Prothrombin Time 30.9 Seconds (9.0-12.0)
[2023-01-23] MEDS: MAGNESIUM OXIDE 400 MG TAB PO SCH ×2 (08:34→22:53)
[2023-01-23] MEDS: allopurinoL 100 MG TAB PO SCH (08:34)
[2023-01-23] MEDS: METOPROLOL TARTRATE 25 MG TAB PO SCH ×2 (08:34→22:53)
[2023-01-23] MEDS: guaiFENesin 600 MG TABCR PO SCH ×2 (08:35→22:53)
[2023-01-23] MEDS: FLUTICASONE/VILANTEROL 200/25MCG 14 PUFFS/INHALER INH SCH (08:35)
--- NOTE | 2023-01-23 08:52 | Hospitalist Progress Note ---
Date of Service January 23, 2023 Assessment & Plan (1) Acute and chronic respiratory failure with hypoxia: Plan: multifactorial incuding PE and covid pneumonia. Cont treatments as outlined below. (2) Pulmonary embolism: Plan: INR therapeutic on warfarin Lovenox was stopped. trend INR in am. Cont treatment for at least 3 months. VTE likely provoked in setting of covid illness. (3) Pneumonia due to COVID-19 virus: Plan: Decadron likely contributing to confusion, so this was stopped on 01/21 Cont supportive care efforts and oxygen supplementation as needed Currently requiring 4lpm oxygenating 95% Cefepime, doxycycline have been given, however, there is no significant pneumonia on chest CT and procal is negative. She is afebrile. Ongoing hypoxia likely 2/2 PE +/- pulmonary infarction. Cont supportive care. Mild concentric LVH. There is a focal akinesis of the basal inferior segment consistent with chronic scar. LV wall motion is otherwise normal. LV systolic function is normal. LVEF 55 to 60%. Aortic valve sclerosis mild, without significant aortic valvular stenosis. There is mild mitral regurg. Grade 1 diastolic dysfunction CBC, BMP, INR daily Day 11-removed isolation (4) Delirium: Plan: Ongoing delirium, multifactorial. Cont current treatments and ongoing supportive care. (5) Hypercalcemia: Plan: Consulted and discussed w/ nephrology - initially received IVF, IV lasix, calcitonin etiologies include but not limited to volume depletion vs malignancy Therapies were not continued and her calcium jed to 11.4 again. IVF restarted with poor PO intake and bisphosphonate was given on 01/21 Ca trending down and not the cause of her current delirium. (6) Restrictive airway disease: Plan: History asthma, restrictive airway disease, exertional hypoxia Follows with [facility] pulmonology Continue home inhaler Albuterol nebs prn Further treatment as above (7) Alzheimer disease: Plan: Underlying dementia puts her at higher risk for inpatient delirium CT head: No acute intracranial abnormality. Acute maxillary sinusitis. UA negative Cont supportive care. (8) Elevated troponin: Plan: Likely related to demand ischemia. Echo with no acute wall motion abnormalities No symptoms of ACS at this time. (9) LBBB (left bundle branch block): Plan: Initial high-sensitivity troponin: 18.6 EKG: Sinus tachycardia, LBBB, PVCs. Last EKG 2011 without LBBB (10) PVC (premature ventricular contraction): Plan: PVCs noted on EKG Started metoprolol tartrate 12.5mg BID (11) Gout: Plan: chronic, stable. Continue allopurinol DVT Prophylaxis - lovenox Full Code --Wants initial attempt but would not want prolonged life support if poor prognosis Follows with Dr Kaur for routine care Dispo: plan to DC to [facility] on Wednesday pending resolution of current confusion and hypercalcemia. Eloisa Araiza DO [facility] Hospitalist Admission and Anticipated Discharge Date Admission Date: January 13, 2023 Subjective 87 yo F admitted for hypoxia 2/2 PE, covid pneumonia and hypercalcemia. Calcium improved to 9.1 this am IVF stopped Confusion appears to be improved as she is more oriented this morning. Review of Systems Review of Systems: Limited ROS as patient is sleepy Physical Exam Physical Exam: CONSTITUTIONAL: WNWD, vitals as above, generally well-appearing, NAD but delirium is present. EYES: normal conjunctivae, no scleral icterus ENT: external ear and nose normal, NECK: trachea midline, RESPIRATORY: clear to auscultation bilaterally, no crackles, rales or wheezes, normal respiratory effort CARDIOVASCULAR: regular rate and rhythm, S1 and 2 heard without murmurs, gallops or rubs, no JVD, no peripheral edema, CHEST: inspection of chest was normal GASTROINTESTINAL: soft, nontender, ND, no guarding MUSCULOSKELETAL: generalized weakness, cannot sit up independently in bed, head is normocephalic and atraumatic SKIN: warm and dry NEUROLOGIC: CN 2-12 grossly intact, no sensory deficit, normal cognition, normal speech, no tremor PSYCHIATRIC: alert, confused. Results & Data Results & Data Vital Signs (Past 12 Hours) Vital Signs Temp Pulse Pulse Resp BP BP Pulse Ox 01/23/23 08:17 36.5 C 68 20 116/72 94 01/23/23 07:00 70 01/22/23 23:18 66 01/23/23 03:20 37.4 C 88 16 138/81 94 01/22/23 22:00 36.7 C 83 16 126/73 93 01/22/23 22:37 O2 Del Method O2 Flow Rate 01/23/23 08:17 Nasal Cannula 4 01/23/23 07:00 01/22/23 23:18 01/23/23 03:20 Nasal Cannula 4 01/22/23 22:00 Nasal Cannula 4 01/22/23 22:37 Nasal Cannula 4 Laboratory Results Short CBC 01/23/23 Range/Units 06:58 WBC 7.61 (4.8-10.8) K/ul Hgb 15.0 (12.0-16.0) g/dl Hct 45.2 (37.0-47.0) % Plt Count 184 (130-400) K/uL BMP 01/23/23 06:58 Sodium 136 Potassium 4.5 Chloride 106 Carbon Dioxide 29 BUN 23 Creatinine 0.52 L Glucose 85 Calcium 9.1 Medications Administered Current Inpatient Medications Acetaminophen (Acetaminophen 325 Mg Tab) 650 mg PO Q4H PRN PRN Reason: Pain or Fever Stop: 02/12/23 22:31 Last Admin: 01/21/23 21:45 Dose: 650 mg Albuterol (Albuterol 0.083% Nebu Soln 3 Ml Vial) 2.5 mg NEB Q6R PRN; Protocol PRN Reason: Shortness Of Breath Or Wheezing Stop: 02/12/23 22:31 Allopurinol (Allopurinol 100 Mg Tab) 100 mg PO DAILY DANYA Stop: 02/13/23 08:59 Last Admin: 01/23/23 08:34 Dose: 100 mg Fluticasone/Vilanterol (Fluticasone/Vilanterol 200/25mcg 14 Puffs/Inhaler) 1 puffs INH DAILY DANYA Stop: 02/13/23 08:59 Last Admin: 01/23/23 08:35 Dose: 1 puffs Guaifenesin (Guaifenesin 600 Mg Tabcr) 600 mg PO Q12 DANYA Stop: 02/13/23 20:59 Last Admin: 01/23/23 08:35 Dose: 600 mg Magnesium Oxide (Magnesium Oxide 400 Mg Tab) 400 mg PO BID DANYA Stop: 02/17/23 20:59 Last Admin: 01/23/23 08:34 Dose: 400 mg Melatonin (Melatonin 3 Mg Tab) 3 mg PO HS PRN PRN Reason: Sleep Stop: 02/13/23 00:46 Last Admin: 01/21/23 21:45 Dose: 3 mg Metoprolol Tartrate (Metoprolol Tartrate 25 Mg Tab) 12.5 mg PO BID DANYA Stop: 02/12/23 22:31 Last Admin: 01/23/23 08:34 Dose: 12.5 mg Polyethylene Glycol (Polyethylene (Miralax) 17 Gm Pack) 17 gm PO DAILY PRN PRN Reason: Constipation Stop: 02/12/23 22:31 Last Admin: 01/19/23 12:54 Dose: 17 gm Warfarin Sodium (Warfarin Sod 5 Mg Tab) 5 mg PO DAILY@1600 DANYA Stop: 02/18/23 15:59 Last Admin: 01/22/23 16:07 Dose: 5 mg
--- NOTE | 2023-01-23 11:58 | Communication Note ---
Date of Service: January 23, 2023 Pt for d/c today possibly and may go before I see her. Ca acceptable. NEPHRO D/C RECOMMENDATIONS -encourage po intake by feeding pt or/and having her eat in congregate settings >she may well have recurrent hypercalcemia unless she maintains oral intake -check bmp in about a week -serum immunofixation and Beta 2 microglobulin are pending at d/c and will need to be followed up by facility physician -nephrology f/u prn
[2023-01-23] MEDS: WARFARIN SOD 5 MG TAB PO SCH (16:41)
[2023-01-23] MEDS: ACETAMINOPHEN 325 MG TAB PO PRN (23:00)
[2023-01-24] MEDS: METOPROLOL TARTRATE 25 MG TAB PO SCH ×2 (07:35→20:12)
[2023-01-24] MEDS: guaiFENesin 600 MG TABCR PO SCH ×2 (07:36→20:12)
[2023-01-24] MEDS: MAGNESIUM OXIDE 400 MG TAB PO SCH ×2 (07:36→20:13)
[2023-01-24] MEDS: allopurinoL 100 MG TAB PO SCH (07:37)
[2023-01-24] MEDS: FLUTICASONE/VILANTEROL 200/25MCG 14 PUFFS/INHALER INH SCH (07:37)
--- NOTE | 2023-01-24 08:02 | Hospitalist Progress Note ---
Date of Service January 24, 2023 Assessment & Plan (1) Acute and chronic respiratory failure with hypoxia: Plan: multifactorial incuding PE and covid pneumonia. Cont treatments as outlined below. Still requiring 4 LPM oxygen Repeat CXR today and continue to encourage ambulation with incentive spirometer use (2) Pulmonary embolism: Plan: INR therapeutic on warfarin Lovenox was stopped. trend INR in am. Cont treatment for at least 3 months. VTE likely provoked in setting of covid illness. (3) Pneumonia due to COVID-19 virus: Plan: Decadron likely contributing to confusion, so this was stopped on 01/21 Cont supportive care efforts and oxygen supplementation as needed Currently requiring 4lpm oxygenating 95% Cefepime, doxycycline have been given, however, there is no significant pneumonia on chest CT and procal is negative. She is afebrile. Ongoing hypoxia likely 2/2 PE +/- pulmonary infarction. Cont supportive care. Day 11-removed isolation on 01/23 (4) Delirium: Plan: resovled, mentating at her baseline today. (5) Hypercalcemia: Plan: Nephrology assisting with management - initially received IVF, IV lasix, calcitonin etiologies include but not limited to volume depletion vs malignancy Therapies were not continued and her calcium jed to 11.4 again. IVF restarted with poor PO intake and bisphosphonate was given on 01/21 IVF now off and calcium has normalized. (6) Alzheimer disease: Plan: Underlying dementia puts her at higher risk for inpatient delirium CT head: No acute intracranial abnormality. Acute maxillary sinusitis. UA negative Cont supportive care. (7) Elevated troponin: Plan: Likely related to demand ischemia. Echo with no acute wall motion abnormalities No symptoms of ACS at this time. (8) LBBB (left bundle branch block): Plan: Initial high-sensitivity troponin: 18.6 EKG: Sinus tachycardia, LBBB, PVCs. Last EKG 2011 without LBBB (9) PVC (premature ventricular contraction): Plan: PVCs noted on EKG Started metoprolol tartrate 12.5mg BID (10) Gout: Plan: chronic, stable. Continue allopurinol DVT Prophylaxis - lovenox Full Code --Wants initial attempt but would not want prolonged life support if poor prognosis Follows with Dr Kaur for routine care Dispo: plan to DC to [facility] when bed is available. EloisaDO Radha Patino Hospitalist Admission and Anticipated Discharge Date Admission Date: January 13, 2023 Subjective 87 yo F admitted for hypoxia 2/2 PE, covid pneumonia and hypercalcemia. Delirium has resolved She is reporting no pain and feels that her breathing is good Awaiting breakfast and will work on moving around more this morning Review of Systems Review of Systems: All systems were reviewed and negative except as indicated on subjective above. Physical Exam Physical Exam: CONSTITUTIONAL: WNWD, vitals as above, generally well-appearing, NAD EYES: normal conjunctivae, no scleral icterus ENT: external ear and nose normal, NECK: trachea midline, RESPIRATORY: clear to auscultation bilaterally, no crackles, rales or wheezes, normal respiratory effort CARDIOVASCULAR: regular rate and rhythm, S1 and 2 heard without murmurs, gal lops or rubs, no JVD, no peripheral edema, CHEST: inspection of chest was normal GASTROINTESTINAL: soft, nontender, ND, no guarding MUSCULOSKELETAL: generalized weakness, cannot sit up independently in bed, head is normocephalic and atraumatic SKIN: warm and dry NEUROLOGIC: CN 2-12 grossly intact, no sensory deficit, normal cognition, normal speech, no tremor PSYCHIATRIC: alert, confused. Results & Data Results & Data Vital Signs (Past 12 Hours) Vital Signs Temp Pulse Pulse Resp BP Pulse Ox O2 Del Method 01/24/23 07:24 60 01/24/23 03:40 36.3 C L 73 18 105/67 97 Nasal Cannula 01/23/23 21:58 75 01/23/23 22:22 36.9 C 76 16 115/74 96 Nasal Cannula 01/23/23 23:31 Nasal Cannula O2 Flow Rate 01/24/23 07:24 01/24/23 03:40 4 01/23/23 21:58 01/23/23 22:22 4 01/23/23 23:31 4 Medications Administered Current Inpatient Medications Acetaminophen (Acetaminophen 325 Mg Tab) 650 mg PO Q4H PRN PRN Reason: Pain or Fever Stop: 02/12/23 22:31 Last Admin: 01/23/23 23:00 Dose: 650 mg Albuterol (Albuterol 0.083% Nebu Soln 3 Ml Vial) 2.5 mg NEB Q6R PRN; Protocol PRN Reason: Shortness Of Breath Or Wheezing Stop: 02/12/23 22:31 Allopurinol (Allopurinol 100 Mg Tab) 100 mg PO DAILY [facility] Stop: 02/13/23 08:59 Last Admin: 01/24/23 07:37 Dose: 100 mg Fluticasone/Vilanterol (Fluticasone/Vilanterol 200/25mcg 14 Puffs/Inhaler) 1 puffs INH DAILY DANYA Stop: 02/13/23 08:59 Last Admin: 01/24/23 07:37 Dose: 1 puffs Guaifenesin (Guaifenesin 600 Mg Tabcr) 600 mg PO Q12 DANYA Stop: 02/13/23 20:59 Last Admin: 01/24/23 07:36 Dose: 600 mg Magnesium Oxide (Magnesium Oxide 400 Mg Tab) 400 mg PO BID [facility] Stop: 02/17/23 20:59 Last Admin: 01/24/23 07:36 Dose: 400 mg Melatonin (Melatonin 3 Mg Tab) 3 mg PO HS PRN PRN Reason: Sleep Stop: 02/13/23 00:46 Last Admin: 01/21/23 21:45 Dose: 3 mg Metoprolol Tartrate (Metoprolol Tartrate 25 Mg Tab) 12.5 mg PO BID [facility] Stop: 02/12/23 22:31 Last Admin: 01/24/23 07:35 Dose: 12.5 mg Polyethylene Glycol (Polyethylene (Miralax) 17 Gm Pack) 17 gm PO DAILY PRN PRN Reason: Constipation Stop: 02/12/23 22:31 Last Admin: 01/19/23 12:54 Dose: 17 gm Warfarin Sodium (Warfarin Sod 5 Mg Tab) 5 mg PO DAILY@1600 [facility] Stop: 02/18/23 15:59 Last Admin: 01/23/23 16:41 Dose: 5 mg
[2023-01-24 08:41] LABS: Hematocrit (blood only) 49.9 % (37.0-47.0); Hemoglobin 16.2 g/dl (12.0-16.0); Mean Corpuscular Hgb Conc 32.5 g/dL (32.0-36.0); Mean Corpuscular Volume 95.6 fL (80.0-100.0); Mean Platelet Volume 11.4 fL (9.4-12.4); Platelet Count 190 K/uL (130-400); RDW Coefficient of Variation 13.8 % (11.5-14.5); RDW Standard Deviation 48.3 fL (36.4-46.3); Red Blood Count 5.22 M/uL (4.20-5.40); White Blood Count 8.49 K/ul (4.8-10.8)
[2023-01-24 08:55] LABS: BUN Creatinine Ratio 43.6 (10-20); Calcium 9.5 mg/dl (8.6-10.3); Creatinine Clr Calc Pharmacy 74.4 ml/min; Est GFR (African American) 97.1 ml/min; Est GFR (Non-African American) 83.7 ml/min; Phosphorus 1.7 mg/dl (2.5-4.9); Potassium 4.3 mmol/L (3.5-5.1)
[2023-01-24 09:06] LABS: INR 3.1 (0.9-1.1); Prothrombin Time 31.7 Seconds (9.0-12.0)
--- NOTE | 2023-01-24 09:43 | XRay Report ---
XR chest 1V portable CLINICAL HISTORY: persistent hypoxia COMPARISON STUDY: Chest radiograph and chest CT January 13, 2023. FINDINGS: There is no pneumothorax or pleural effusion. Blunting of the costophrenic angles is likely chronic. Cardiomegaly is unchanged. There is no evidence for pulmonary edema. No consolidation to [place] g[place] pneumonia. Lung volumes are mildly diminished. This is similar to prior exam. IMPRESSION: No acute cardiopulmonary findings. ACT 112: Negative or not required by law. Electronically signed by: Cipriano Sandoval M.D. 01/24/2023 9:41 AM
[2023-01-24] MEDS: POT PHOSPHATE MONOBASIC W/ SOD TAB PO SCH ×3 (12:41→20:13)
[2023-01-24] MEDS: WARFARIN SOD 5 MG TAB PO SCH (17:18)
[2023-01-24] MEDS: ACETAMINOPHEN 325 MG TAB PO PRN (20:13)
[2023-01-24] MEDS: MELATONIN 3 MG TAB PO PRN (20:13)
[2023-01-25 07:32] LABS: Calcium 9.6 mg/dl (8.6-10.3); Creatinine Clr Calc Pharmacy 83.5 ml/min; Est GFR (African American) 100.8 ml/min; Phosphorus 2.4 mg/dl (2.5-4.9); Potassium 4.8 mmol/L (3.5-5.1)
[2023-01-25] MEDS: MAGNESIUM OXIDE 400 MG TAB PO SCH (07:34)
[2023-01-25] MEDS: POT PHOSPHATE MONOBASIC W/ SOD TAB PO SCH ×2 (07:35→12:23)
[2023-01-25] MEDS: METOPROLOL TARTRATE 25 MG TAB PO SCH (07:35)
[2023-01-25] MEDS: guaiFENesin 600 MG TABCR PO SCH (07:36)
[2023-01-25] MEDS: allopurinoL 100 MG TAB PO SCH (07:36)
[2023-01-25] MEDS: FLUTICASONE/VILANTEROL 200/25MCG 14 PUFFS/INHALER INH SCH (07:37)
[2023-01-25 07:40] LABS: Prothrombin Time 30.5 Seconds (9.0-12.0)
[2023-01-25 10:52] LABS: Beta-2-Microglobulin 2.13 mg/L (< OR = 2.51)
--- NOTE | 2023-01-25 12:39 | Discharge Summary ---
Discharge Summary Date of Service January 25, 2023 Notes For Next Care Provider Please continue warfarin for 3 months for provoked PE INR management for goal INR 2-3 New hypoxia 2/2 pulmonary emboli plus possible infarction Expect hypoxia to eventually resolve Hypercalcemia in hospital-uncertain etiology. PTH, 25OH normal She received one dose of zolendronic acid 2mg IV on 01/21 Medication Changes From Visit NEW warfarin 5 mg PO daily Admission HPI Per Admitting Provider Patient is 87-year-old female with PMH Alzheimer dementia, restrictive lung disease, asthma, gout presented to ER for noted hypoxia in PCP clinic today. History obtained from patient as well as patient's daughter and patient's son. Family reports 2 days ago visited her and she was found her sitting on the floor, apartment was soiled with stool. She was naked and seemed disoriented. Son states stool looked dark. Patient refused to go to ER at that time. Seen at PCPs office today for follow up of altered mental status 2 days ago and she was found to have pulse ox of 85%. Chronic cough sometimes productive, unknown color. Denies any increased cough. Patient with chronic shortness of breath with exertion. Outpatient pulmonology trying to get patient oxygen to use with exertion for exertional hypoxia. Patient denies any increased SOB. Denies any increased cough. She feels her cough has been worse in the past. Denies chest pain, fever/chills, diaphoresis, N/V/D/C, GARCÍA, dizziness, syncope, vision changes, neck pain, palpitations, hemoptysis, sore throat, rhinorrhea, abdominal pain, weakness, extremity weakness, extremity edema, rashes, urinary symptoms. Outpatient records reviewed: 04/27/2022: Echo:EF>70%, borderline to mild aortic stenosis, moderate mitral annular calcification, mild mitral regurgitation Principal Dx & Hospital Course #1 = Principal Diagnosis (1) Acute and chronic respiratory failure with hypoxia: (2) Pulmonary embolism: (3) Pneumonia due to COVID-19 virus: (4) Delirium: (5) Hypercalcemia: (6) Alzheimer disease: (7) Elevated troponin: Plan 87-year-old female admitted for acute respiratory failure secondary to PE and COVID-pneumonia. She was admitted to telemetry and placed on dexamethasone, cefepime, doxycycline. CTA of the chest revealed several segmental and subsegmental pulmonary emboli within the right lung and a small right pleural effusion with adjacent airspace opacity favoring atelectasis but unable to rule out pulmonary infarction with infectious process also considered in the differential but considered less likely. Procalcitonin was negative. Influenza RSV PCR were negative. She was placed on COVID isolation. She had metabolic encephalopathy in the setting of chronic known dementia. Sinus tachycardia was present and she was started on low-dose metoprolol. Elevated troponin was felt likely secondary to demand ischemia. Echo revealed no acute wall motion abnormalities and there were no symptoms of ACS. No further cardiac work-up was performed. Hypercalcemia was also noted and she was given calcitonin. Warfarin with Lovenox bridge was started for underlying PEs. Calcium improved with IV fluid and calcitonin however started to rise again. Nephrology was consulted and gave zoledronic acid 2 mg IV on 01/21. Additional IV fluids were given as patient was having intermittent delirium with poor p.o. intake. Calcium improved to normal and remained normal throughout the remainder of her stay. Underlying PTH and 25 hydroxy vitamin D were within normal limits. Beta-2 microglobulin was normal and MARTY serum revealed normal pattern with no monoclonal proteins detected. Underlying cause of hypercalcemia is not clear at time of discharge. She was taken off antibiotics within a couple of days of hospital stay and continued to do well but did require supplemental oxygen consistently. This is expected to improve with healing and time. She was recommended to go to rehab and is transitioning to [facility] at time of discharge. At time of discharge she is intermittently confused, hemodynamically stable and afebrile and tolerating p.o. She is able to follow instructions and is oriented to person and place. She is not demonstrating increased work of breathing and is stable for discharge home. I did discuss the case with her daughter by phone on day of discharge and all questions were answered to her satisfaction. Discharge Exam CONSTITUTIONAL: WNWD, vitals as above, generally well-appearing, NAD EYES: normal conjunctivae, no scleral icterus ENT: external ear and nose normal, NECK: trachea midline, RESPIRATORY: clear to auscultation bilaterally, no crackles, rales or wheezes, normal respiratory effort CARDIOVASCULAR: regular rate and rhythm, S1 and 2 heard without murmurs, gallops or rubs, no JVD, no peripheral edema, CHEST: inspection of chest was normal GASTROINTESTINAL: soft, nontender, ND, no guarding MUSCULOSKELETAL: generalized weakness, cannot sit up independently in bed, head is normocephalic and atraumatic SKIN: warm and dry NEUROLOGIC: CN 2-12 grossly intact, no sensory deficit, normal cognition, normal speech, no tremor PSYCHIATRIC: alert, confused. Updated Medication List Medication Instructions Recorded Confirmed Type allopurinol 100 mg tablet 100 mg PO DAILY 01/13/23 01/13/23 History fluticasone 250 mcg-salmeterol 50 1 inh inhalation BID 01/13/23 01/13/23 History mcg/dose blistr powdr for inhalation ([facility] In[facility]) warfarin 5 mg tablet 5 mg PO DAILY@1600 #60 tabs 01/25/23 Rx Hospital Stay Data Consultations 01/15/23 09:07 Consult Nephrology Routine Diagnostic Imagining Performed 01/13/23 15:43 CT for pulmonary embolism PE [CT angio chest PE protocol] Stat CT head/brain wo con Stat Pending Results Patient Have Any Pending Studies at Discharge: No Discharge Instructions Given to Patient (Per Discharging Provider) Please take all medications as instructed on discharge list below. Repeat chest imaging is recommended in 4 to 6 weeks to ensure complete resolution of pneumonia You have multiple pulmonary emboli with possible pulmonary infarction in addition to pneumonia. You are leaving the hospital on an increased amount of oxygen but are expected to be able to wean off this as you heal and improve. Please continue the warfarin for treatment of provoked pulmonary emboli in the setting of COVID-19 for 3 months. INR monitoring is recommended for goal INR 2-3. While in the hospital, your calcium was abnormally elevated. Our workup did not find a clear cause for this. You were given a medication called bisphosphonate to help lower the calcium, however, further investigation into the cause of this will need to be pursued by your primary care physician. It was a pleasure taking care of you! Please call if you have any questions or problems. You can reach a [facility] hospitalist on duty at [facility] 24 hours a day by calling [phone]. Take care of yourself. Eloisa Araiza DO [facility] Hospitalist Total Time Total Time Spent Total Time Spent (In Minutes): 60
== END 2023-01-25 13:40 | DRG 177 ==
LOC: ED 11:17 → 2N 15:47 → SUATTDRO 15:47 → 2N 21:45